=== PATIENT | male | born 1940 | race Caucasian/White ===

== ENCOUNTER 2016-07-26 12:46 | Inpatient (IN) | payer MEDICARE, MEDICAID ==
[~2016-07-26] VITALS: Ht 175.3 cm; Wt 76.3 kg
--- NOTE | ~2016-07-26 | HEMODYNAMI ---
PATIENT:TOMMIE EVANS MEDICAL RECORD: [id number] : 42 LOCATION:[facility] D.2309 ADMISSION DATE: 07/26/16 Generatedon:07/27/201615:20 Patient name: TOMMIE EVANS Patient #: [id number] : 1940 Date of study: 07/27/2016 Page: Of Hemodynamic Procedure Report Patient Data Patient Demographics Procedure consent was obtained First Name: TOMMIE Gender: Male Last Name: NATHAN : 1940 [facility] Initial: L Age: 76 year(s) Patient #: [id number] Race: SSN: [id number] Additional ID: [id number] Contact details [address]: [address] [place] [address] State: [place] City: [place] Zip code: [address] Past Medical History History of disease Date Diagnosis Comments CHF Allergies: No known allergies Admission Admission Data Admission Date: 07/26/2016 Admission Time: 14:40 Arrival Date: 07/27/2016 Arrival Time: 14:40 Admit Source: Emergency Insurance Payor: Medicare department Room #: D.2309 Weight (lbs.): 192 Weight (kg.): 87.09 Lab Results Lab Result Date: 07/27/2016 Lab Result Time: 0:00 Biochemistry Name Units Result Min Max BUN mg/dl 22 --(----)-* 7 18 Creatinine mg/dl 1.5 --(----)-* 0.6 1.3 CBC Name Units Result Min Max Hemoglobin g/dl 13.8 --(*---)-- 13.5 17.5 Procedure Procedure Types Cath Procedure Diagnostic Procedure [facility] w/Coronaries PCI Procedure Coronary Stent Initial Procedure Description Procedure Date Procedure Date: 07/27/2016 Procedure Start Time: 14:35 Procedure End Time: 14:55 Procedure Staff Name Function Norris Rosa MD Performing Physician Candace Whaley RT Scrub Reynaldo Paige RN Nurse Isabella Gunderson RT Monitor Indication Angina Procedure Data Cath Procedure Fluoroscopy Diagnostic fluoroscopy Total fluoroscopy Time: 4.3 time: 4.3 min min Diagnostic fluoroscopy Total fluoroscopy dose: dose: 1004 mGy 1004 mGy Entry Location Entry Primary Successful Side Size Upsize Upsize Entry Closure Succes sful Closure Location (Fr) 1 (Fr) 2 (Fr) Remarks Device Remarks Femoral Right 6 Fr 6 Fr 6 Fr artery Short Long Short Estimated blood loss: 5 ml Diagnostic catheters Device Type Used For End Catheter Placement Cordis 5Fr Pigtail LV Angiography Catheter (MP) Cordis 5Fr JL 4.0 Left Coronary Catheter (MP) Angiography Cordis 5Fr 3DRC Catheter Right Coronary (MP) Angiography Procedure Complications No complications Procedure Medications Medication Administration Route Dosage Oxygen Heparin Flush Bag added to field 3 bags (1000units/500ml NS) 0.9% NaCl I.V. 100 ml/hr Heparin Bolus I.V. 4000 units Dobutamine I.V. drip 5 mcg/kg/min (500mg/250ml D5W) Hemodynamics Rest HGB: 13.8 (g/dl) Heart Rate: 104 (bpm) Pressure Samples Time Site Value (mmHg) Purpose Heart Use Rate(bpm) 14:38 LV 21/15,16 Snapshot 75 Snapshots Pre Cath Intra NCS Post Cath Vital Signs Time Heart Resp SPO2 NIBP (mmHg) Rhythm Pain Sedation Rate (ipm) (%) Status Level (bpm) 14:27:15 93 18 100 94/78(83) NSR 0 (11) 5(A) , No pain 14:31:55 89 18 100 112/75(97) NSR 0 (11) 5(A) , No pain 14:35:53 112 18 100 124/87(109) NSR 0 (11) 5(A) , No pain 14:39:54 96 18 100 114/85(98) NSR 0 (11) 5(A) , No pain 14:43:52 90 18 100 112/92(100) NSR 0 (11) 5(A) , No pain 14:47:49 109 19 100 119/88(104) NSR 0 (11) 5(A) , No pain 14:51:47 95 18 100 119/99(105) NSR 0 (11) 5(A) , No pain 14:55:45 99 18 100 122/95(107) NSR 0 (11) 5(A) , No pain Medications Time Medication Route Dose Verified Delivered Reason Notes Effectiveness by by 14:44:09 Oxygen Per Vent 14:44:24 Heparin Flush added 3 bags Reynaldo Jacobs used for Bag to Royal Paige RN procedure (1000units/500ml field RN NS) 14:44:34 0.9% NaCl I.V. 100 ml/hr Reynaldo Jacobs Per Royal Paige RN physician RN 14:44:41 Heparin Bolus I.V. 4000 units Reynaldo Jacobs Per Royal Paige RN physician RN 14:47:57 Dobutamine I.V. 5 Reynaldo Jacobs Per (500mg/250ml drip mcg/kg/min Royal Paige RN physician D5W) cane burner Log Time Note 13:57:06 Admit Source: Emergency department 13:57:14 Time tracking: Call back 13:57:18 Plan of Care:Hemodynamics will remain stable., Cardiac rhythm will remain stable., Comfort level will be maintained., Respiratory function will remain adequate., Patient/ family verbilizes understanding of procedure., Procedure tolerated without complication., Recovers from procedure without complications.. 14:09:35 Reynadlo Paige RN sent for patient. Start room use. 14:16:30 Diagnostic Cath Status : Elective 14:16:36 Indication : Angina 14:16:57 Informed consent obtained and on chart 14:17:03 Arrival Date: 07/27/2016 2:40:00 PM 14:17:14 Insurance Payor : Medicare 14:26:13 Patient received from ICU to CCL 1 Alert and oriented. Tansferred to table in Supine position. 14:26:14 Warm blankets applied, and melida hugger turned on for patient comfort. 14:26:14 Correct patient and procedure confirmed by team. 14:26:15 ECG and BP/O2 sat monitors applied to patient. 14:26:15 Vital chart was started 14:26:16 Baseline sample Acquired. 14:26:26 Rhythm: 3rd degree heart block 14:26:28 Full Disclosure recording started 14:26:32 H&P Date Dictated: 07/27/2016 New H&P dictated by physician.. 14:26:36 Pre-procedure instructions explained to patient. 14:26:37 Pre-op teaching completed and patient verbalized understanding. 14:26:39 Family unavailable. 14:26:40 Patient NPO since Midnight. 14::44 Is the patient allergic to Iodine/contrast media? No. 14::45 Was the patient premedicated? No 14::48 Is patient on blood thinner?Yes 14::51 ACC The patient was administered the following blood thiners within the last 24 hours: ACCPlavix 14:27:58 Patient unable to answer questions due to intubation and sedation 14:28:03 Previous problem with sedation/anesthesia? Unknown ? 14:28:05 Snore? Unknown 14:28:06 Sleep apnea? Unknown 14:28:07 Deviated septum? Unknown 14:28:08 Opens mouth fully? Unknown 14:28:10 Sticks out tongue? Unknown 14:28:12 Airway obstruction? Unknown ? 14:28:15 Dentures? Unknown ? 14:28:19 Pre procedure: right dorsailis pedis pulse 1+ Palpable, but thready & weak; easily obliterated 14:28:21 Patient pain scale 0/10 ?. 14:28:27 IV patent on arrival in left forearm with 0.9% NaCl at [facility]. 14:29:49 Lab Result : BUN 22 mg/dl 14:29:49 Lab Result : Creatinine 1.5 mg/dl 14:29:49 Lab Result : Hemoglobin 13.8 g/dl 14:29:53 Lab results completed and on chart. 14:29:57 Right groin area was prepped with chlora-prep and draped in sterile fashion 14::58 Alarms reviewed by R. N. 14::58 Sharps counted by scrub and verified by R.N. 14:30:44 Physician arrived 14::44 --------ALL STOP TIME OUT------ 14:30:45 Final Timeout: patient, procedure, and site verified with staff and physician. All members of the team are in agreement. 14:30:46 Right groin site verified by team. 14:30:48 Physical assessment completed. ASA score P 4 - A patient with severe systemic disease that is a constant threat to life as per Norris Rosa MD. 14:30:52 Sedation plan: IV Moderate Sedation Versed, Fentanyl 14:31:15 Micropuncture VSI 4FR kit opened to sterile field. 14:31:43 Use device set Femoral Dx 14:31:44 Acist Syringe opened to sterile field. 14:31:45 Bag Decanter opened to sterile field. 14:31:45 Cardinal Cath Pack opened to sterile field. 14:31:46 St Del 260cm J .035 wire opened to sterile field. 14:31:47 Acist Hand Control opened to sterile field. 14:31:47 Acist Manifold opened to sterile field. 14:31:48 Cordis Infinity 5Fr Multipack catheter opened to sterile field. 14:31:49 Tegaderm 4 x 4 opened to sterile field. 14:31:58 Flores Whisper J 300cm 0.014 guide wire opened to sterile field. 14:32:17 Terumo 6Fr Fults Sheath opened to sterile field. 14:35:24 Procedure started. 14:35:28 Local anesthetic to right femoral artery with Lidocaine 2% by Norris Rosa MD.INITIAL ACCESS ONLY 14:35:39 A 6 Fr Short sheath was inserted into the Right Femoral artery 14:36:27 Zero performed for pressure channel P1 14:36:34 IV Extension Set opened to sterile field. 14:37:57 A Cordis 5Fr Pigtail Catheter (MP) was advanced over the wire and used for LV Angiography. 14:38:25 LV hemodynamics recorded. 14:38:26 LV gram done using LAMAS 14:38:30 Injector settings: Ml/sec: 5, Volume: 15, 14:38:50 EF : 10 % 14:38:59 Catheter removed. 14:39:06 A Cordis 5Fr JL 4.0 Catheter (MP) was advanced over the wire and used for Left Coronary Angiography. 14:39:25 LCA angiography performed. 14:39:30 Injector settings: Ml/sec: 3, Volume: 6, 14:40:13 Catheter removed. 14:40:17 A Cordis 5Fr 3DRC Catheter (MP) was advanced over the wire and used for Right Coronary Angiography. 14:41:16 RCA angiography performed. 14:41:20 Injector settings: Ml/sec: 3, Volume: 6, 14:41:41 Catheter removed. 14:41:56 Univision Launcher 6Fr AR 2.0 guide catheter opened to sterile field. 14:42:17 [employer] BasixCompak Inflation Kit opened to sterile field. 14:42:50 Proceeding to intervention. 14:42:59 6 Fr ar 2 guide catheter was inserted over the wire 14:43:57 Guide Catheter removed. unable to cannulate vessel. 14:44:01 Medtronic Launcher 6Fr 3DRC guide catheter opened to sterile field. 14:44:09 Oxygen Per Vent was given by ; ; 14:44:09 6 Fr 3drc guide catheter was inserted over the wire 14:44:24 Heparin Flush Bag (1000units/500ml NS) 3 bags added to field was given by Reynaldo Paige RN; used for procedure; 14:44:34 0.9% NaCl 100 ml/hr I.V. was given by Reynaldo Paige RN; Per physician; 14:44:41 Heparin Bolus 4000 units I.V. was given by Reynaldo Paige RN; Per physician; 14:45:31 Guide Catheter removed. unable to get back-up support 14:46:28 Arrow 6Fr 45cm Sheath opened to sterile field. 14:46:35 Medtronic Launcher 6Fr 3DRC guide catheter opened to sterile field. 14:46:44 Sheath upsized to a 6 Fr Long. 14:46:58 6 Fr 3drc guide catheter was inserted over the wire 14:47:25 whisper wire advanced. 14:47:57 Dobutamine (500mg/250ml D5W) 5 mcg/kg/min I.V. drip was given by Reynaldo Paige RN; Per physician; 14:48:28 Wire advanced across lesion. 14:49:33 Inflation Number: 1 A Medtronic Integrity 3.0 X 18 stent was prepped and advanced across the Dist RCA. The stent was deployed at 13 NORIS for 0:10 (min:sec). 14:49:40 Inflation number: 2 The stent balloon was then re-inflated across the Dist RCA to 19 NORIS for 0:10 (min:sec). 14:50:00 Inflation number: 3 The stent balloon was then re-inflated across the Dist RCA to 11 NORIS for 0:10 (min:sec). 14:50:35 Stent catheter was removed intact over wire. 14:50:38 Wire removed. 14:50:39 Guide catheter removed. 14:51:16 Sheath upsized to a 6 Fr Short. 14:51:59 Procedure ended.(Physican Out) 14:52:12 Fluoroscopy time 04.30 minutes. 14:52:42 Sheath sutured in for arterial access 14:53:02 Flurop Dose total: 1004 14:53:02 Fluoroscopy dose: 1004 mGy 14:53:17 2.0 Silk 685H opened to sterile field. 14:53:52 Sharps counted by scrub and verified by R.N. 14:54:01 Insertion/operative site no bleeding no hematoma. 14:54:10 Post right femoral artery:stable 14:54:11 Post Procedure Pulses reassessed and unchanged 14:54:14 Post procedure rhythm: unchanged. 14:54:17 Estimated blood loss: 5 ml 14:54:18 Post procedure instruction explained to patient.Patient verbalizes understanding. 14:54:19 Patient needs reinforcement of post procedure teaching. 14:54:32 Procedure type changed to Cath procedure, Diagnostic procedure, LHC, LHC w/Coronaries, PCI procedure, Coronary Stent Initial 14:54:33 Procedure and supply charges have been captured, reviewed, submitted and are correct. 14:54:36 Procedure Complication : No complications 14:55:20 Vital chart was stopped 14:55:21 See physician's report for complete and final results. 14:55:24 Report given to ICU. 14:55:26 Patient transfered to ICU with Stretcher. 14:55:28 Procedure ended. 14:55:28 Full Disclosure recording stopped 14:56:01 ACC-PCI Only Patient was given prescriptions, or instructed by Norris Rosa MD to start/continue the following medications upon discharge: Plavix 14:56:02 End room use (Document Last) 14:57:45 Patient Weight : 87.09 kg Intervention Summary Intervention Notes Time ActionType Lesion and Equipment Action# Pressure Duration Attributes Used 14:49:33 Place stent Dist RCA Medtronic 1 13 00:10 Integrity 3.0 X 18 stent 14:49:40 Reinflate Dist RCA Medtronic 2 19 00:10 stent Integrity balloon 3.0 X 18 stent 14:50:00 Reinflate Dist RCA Medtronic 3 11 00:10 stent Integrity balloon 3.0 X 18 stent Device Usage Item Name Manufacture Quantity Catalog Hospital Part Current Minima l Lot# / Number Charge Number Stock Stock Serial# Code Micropuncture VSI VASCULAR 1 [id number] 280517 031491 5 VSI 4FR kit SOLUTIONS Acist Syringe Acist 1 54943 768590 302103 797717 20 Medical Systems Inc Bag Decanter Microtek 1 2002S 136662 17475 034594 5 Medical Inc. Cardinal Cath Cardinal 1 [id number] 107807 98089 236394 [address] [facility] [address] Del [address] St Del 1 378833 782722 989937 091244 30 J .035 wire Acist Hand Acist 1 92570 931691 800487 117231 5 Control Medical Systems Inc Acist Acist 1 85292 384854 224241 136765 5 InterpretOmics Medical Systems Inc Cordis Cardinal 1 PS7115 225123 66080 872607 30 Infinity 5Fr Health Multipack catheter Tegaderm 4 x 3M 1 1626W 595772 890506 207629 5 4 Flores Flores 1 [id number] 412752 236642 164981 5 Whisper J Vascular 300cm 0.014 guide wire Terumo 6Fr Terumo 1 [id number] 949486 528027 881555 40 Fults Sheath IV Extension Hospira 1 95946-42 767026 24898 175634 5 Set Cordis 5Fr Cardinal 1 863384 5 Pigtail Health Catheter (MP) Cordis 5Fr JL Cardinal 1 380974 5 4.0 Catheter Health (MP) Cordis 5Fr Cardinal 1 364142 5 3DRC Catheter Health (MP) Medtronic Medtronic 1 [id number] 333759 81674 541822 1 Launcher 6Fr AR 2.0 guide catheter Merit Merit 1 [id number] 242090 035923 457021 [facility] Inflation [facility] Medtronic Medtronic 2 [id number] 584750 002455 810507 1 Launcher 6Fr 3DRC guide catheter Arrow 6Fr Teleflex 1 CL-09988 342081 601897 761976 5 45cm Sheath Medtronic Medtronic 1 [id number] 015582 571019 404726 7 [id number] Integrity 3.0 X 18 stent 2.0 Silk 685H Ethicon 1 685H 222439 198045 5 Signature Audit [place] Stage Time Signature Unsigned Intra-Procedure 07/27/2016 Isabella Gudnerson 3:20:48 PM RT(R) Signatures Monitor : Isabella Gunderson RT Signature : Date : Time : [address] [place] [address]
[~2016-07-26 12:46] MED LIST: BETAPACE 120 M120 MG PO; CORDARONE200 MG PO; FLORAJEN3 CAPS460 MG PO; LANOXIN250 MCG; LANOXIN250 MCG PO; LASIX20 MG PO; LEVAQUIN750 MG PO; LISINOPRIL10 MG PO; LOPRESSOR25 MG PO; MUCINEX600 MG PO; PRADAXA75 MG PO; ZESTRIL20 MG PO
[2016-07-26 13:23] LABS: BASOPHILS 0.1 % (0.0-2.0); EOSINOPHILS 1.1 % (0-7); HEMATOCRIT 41.9 % (42.0-54.0); HEMOGLOBIN 13.8 g/dL (13.5-17.5); IMMATURE GRANULOCYTES 0.1 % (0-5); LYMPHOCYTES 20.2 % (15-50); MCH 32.5 pg (26.0-34.0); MCHC 32.9 g/dL (31.0-37.0); MCV 98.6 fL (80.0-100.0); MEAN PLATELET VOLUME 12.2 fL (7.4-10.4); MONOCYTES 6.9 % (2-11); NEUTROPHILS 71.6 % (40-80); RBC 4.25 10x6/uL (4.20-6.10); RDW 12.4 % (11.5-14.5); WBC 8.5 10x3/uL (4.8-10.8)
[2016-07-26 13:25] LABS: PLATELET COUNT 217 10x3/uL (130-400)
[2016-07-26 13:48] LABS: ALBUMIN 3.9 g/dL (3.4-5.0); ANION GAP 11.5 mmol/L (8-16); BILIRUBIN - TOTAL 1.4 mg/dL (0.2-1.3); CALCIUM 9.2 mg/dL (8.5-10.1); CARBON DIOXIDE 26.3 mmol/L (21.0-32.0); CREATININE - SERUM 1.5 mg/dL (0.6-1.3); MAGNESIUM - SERUM 1.9 mg/dL (1.8-2.4); POTASSIUM - SERUM 3.8 mmol/L (3.5-5.1); PROTEIN - SERUM 7.5 g/dL (6.4-8.2); TROPONIN-I 0.032 ng/mL (0.000-0.060)
[2016-07-26 16:44] VITALS: BP 131/68; BMI 26.2; BMI 28.4
--- NOTE | 2016-07-26 16:47 | NUR ---
TRANSFER FROM ER BY W/C. DOLLYINTED TO ROOM. CALL LIGHT IN REACH. WILL CONT. PLAN OF CARE.
[2016-07-26 20:30] VITALS: BP 92/62
[2016-07-27] VITALS (40 sets, daily range): BP systolic 76–138; BP diastolic 50–98
--- NOTE | 2016-07-27 02:15 | NUR ---
PT RESTING WELL WITHOUT C/O DISTRESS NOTED. NO NEEDS VOICED. CALL LIGHT WITHIN REACH. WILL CONT TO MONITOR.
--- NOTE | 2016-07-27 09:23 | NUR ---
TELEMETRY SR. IV PATENT. CALL LIGHT IN REACH. WILL MONITOR NEEDS.
--- NOTE | 2016-07-27 13:27 | NUR ---
CODE BLE CALLED. DR. BERGER AT BS. SHOCKED 360J AND CAME BACK WITH PULSE AND SB.
--- NOTE | 2016-07-27 13:35 | NUR ---
INTUBATED BY DR. MOBLEY. AND SENT TO ICU.
--- NOTE | 2016-07-27 13:54 | NUR ---
ATTEMPTED TO NOTIFY FAMILY OF TRANSFER TO ICU. NO ANSWER NOTED. MESSAGE LEFT.
[2016-07-27 14:10] LABS: BASOPHILS 0.2 % (0.0-2.0); EOSINOPHILS 2.2 % (0-7); HEMATOCRIT 49.4 % (42.0-54.0); HEMOGLOBIN 16.1 g/dL (13.5-17.5); IMMATURE GRANULOCYTES 0.2 % (0-5); LYMPHOCYTES 36.1 % (15-50); MCH 31.9 pg (26.0-34.0); MCHC 32.6 g/dL (31.0-37.0); MCV 97.8 fL (80.0-100.0); MEAN PLATELET VOLUME 12.5 fL (7.4-10.4); MONOCYTES 8.5 % (2-11); NEUTROPHILS 52.8 % (40-80); PLATELET COUNT 230 10x3/uL (130-400); RBC 5.05 10x6/uL (4.20-6.10); RDW 12.5 % (11.5-14.5); WBC 10.2 10x3/uL (4.8-10.8)
[2016-07-27 14:27] LABS: ALBUMIN 4.1 g/dL (3.4-5.0); ANION GAP 18.1 mmol/L (8-16); BILIRUBIN - TOTAL 1.37 mg/dL (0.2-1.3); CALCIUM 9.7 mg/dL (8.5-10.1); CARBON DIOXIDE 25.8 mmol/L (21.0-32.0); CREATININE - SERUM 1.5 mg/dL (0.6-1.3); MAGNESIUM - SERUM 2.3 mg/dL (1.8-2.4); PHOSPHOROUS 5.2 mg/dL (2.5-4.9); POTASSIUM - SERUM 3.9 mmol/L (3.5-5.1); PROTEIN - SERUM 7.9 g/dL (6.4-8.2)
--- NOTE | 2016-07-27 18:07 | NUR ---
1400-RECIEVED AZBL-YEQY-ORLMDNUXMYE BY DR MOBLEY AND SACHI BLUE TEAM--NOTED UCAF ON KIHAUEQ-YAJR-150/[address] MOBLEY-CORDARONNRaquel 150MG IBOLUS STARTED-L 20 X2 IV ACCESSES OBTAINED IN L HAND -LAB DRAWN R HAND FOR STAT BMP/HEMOGRAM-PT INTUBATED AND PLACED ON VENT--BY RT-POWER MACHINE OPERATOR PRESENT AND SETUP-STARTED FOR TRANSPORT TO POWER MACHINE OPERATOR-PORTABLE VENT-PT MOVING ALL EXTREMITIES WITH ASAD 9-1-GIFSFNKF DIPRIVAN FOR ASAD 1-2 NIBP 102/70 ABG CHSIR-5268-AQ TRANSPORTED PER POWER MACHINE OPERATOR TEAM AND RT-JENNIFER CATH IN PLACE
--- NOTE | 2016-07-27 19:35 | NUR ---
REC'D TO CARE, TOOL DESIGN CHECKER PER FLOWSHEET. PT ON MECH VENT VIA OETT - SEE FLOWSHEET. SEDATED WITH DIPRIVAN GTT - WILL OPEN EYES AND JOSE. B/L SOFT WRIST RESTRAINTS ON PER MD ORDER. OGT TO LIWS WITH LIGHT BROWN DRAINAGE. HEART IRREG - CM CAF . R FEMORAL A-LINE - FLUSHED AND ZEROED WITH ADEQUATE WAVE FORM, NOTED NOT PERFUSING ALL BEATS. APICAL PULSE 55.. PEDAL PULSES DOPPLERABLE. R GROIN VENOUS LINE WITH NS AT 50ML/HR AND DOBUTAMINE AT 5 MCG/KG/MIN - DSG C/D/I. L WRIST AND HAND PIV X 2 - INFUSING DIPRIVAN, CORDARONE AND LEVOPHED GTTS - WILL TITRATE LEVOPHED PER MD ORDER. RODRIGUEZ CATH PATENT AND DRAINING LIGHT YELLOW, PINK-TINGED URINE. ALARMS ON. WILL CONT CLOSE MONITORING.
--- NOTE | 2016-07-27 20:09 | NUR ---
1540-RETURNED TO 2309 WITH OUTSIDE SALES CONSULTANT TEAM AND RT-PORT VENT PLACED-TO VENT BY RT-R FEM DALE TO MONITOR WITH GOOD WAVE FORM-R FEM VENOUS TO N/S AND DOBUTREX AT 5MCG/KG/MIN-L HAND DIPRIVAN TITRATED TO 25MCG-CURRENT ASAD 5-6-GOAL 7-9-JAXCCVYNP AT MG /MIN-LEVOPHED STARTED TO MAINTAIN SYS BP>100-RODRIGUEZ CATH ASHLEE URINE - 1630-RETURN CALL FROM INFORMED OF EVENTS AND OUT COME STRESSED SERIOUS ON VENT-WITH CONDITION STABILIZING-ENCOURAGED SAFE RETURN TO [facility]->100MILES DISTANCE- 174-DR NUNES IN UNIT-CURRENT STATUS REPORT AND COURSE OF EVENTS-FAMILY ARRIVAL PENDING 1809-SISTER ARRIVED -ASAD 4-PT MOVING ALL EXTREMITIES-TITRATING DIPRIVAN AND LEVOPHED FOR SYS BP SUPPORT AND GOAL OF 1-2 183- AT [facility]-EVENTS REVIEWED PT ASAD 1-2-PAUSED MADDISON TO REVIEW NUERO STATUS WITH 184-ASAD 1-1-BTHCGUPH RETURNED AND FAMILY IN WAITING AREA
[2016-07-27 20:54] LABS: APPEARANCE HAZY (CLEAR); BILIRUBIN NEGATIVE (NEGATIVE); COLOR YELLOW (YELLOW); GLUCOSE NEGATIVE (NEGATIVE); KETONE NEGATIVE (NEGATIVE); LEUKOCYTE ESTERASE NEGATIVE (NEGATIVE); NITRITE NEGATIVE (NEGATIVE); PROTEIN TRACE mg/dL (NEGATIVE); SPECIFIC GRAVITY 1.015 (1.005-1.020); UROBILINOGEN NORMAL (NORMAL)
[2016-07-27 20:55] LABS: BACTERIA MODERATE /hpf (NONE SEEN); EPITHELIAL CELLS 0-5 /hpf (0-5); HYALINE CAST OCC /lpf (NONE SEEN); RED CELLS - URINE 25-50 /hpf (0-5); WHITE CELLS - URINE 0-5 /hpf (0-5)
[2016-07-27 20:56] LABS: AMORPHOUS SEDIMENT <1+ /lpf (NONE SEEN); GRANULAR CAST OCC /lpf (NONE SEEN)
--- NOTE | 2016-07-27 21:26 | NUR ---
FAMILY AT BS, UPDATE GIVEN AND QUESTIONS ANSWERED. BELONGING INCLUDING CLOTHES AND WATCH SENT WITH . PASSWORD SET UP.
[2016-07-28] VITALS (96 sets, daily range): BP systolic 90–137; BP diastolic 48–89; Ht 175.3 cm; Wt 76.3 kg
--- NOTE | 2016-07-28 01:07 | NUR ---
SEDATION DECREASED FOR NEURO CHECK. WITHIN 10MIN PT OPENING EYES AND SQUEEZING HANDS TO COMMAND. RESUMED DIPRIVAN TO 30MCG/KG/MIN D/T PT PULLING AND REACHING FOR TUBES. VSS.
--- NOTE | 2016-07-28 01:12 | NUR ---
REPOSITIONED WITH PILLOWS, RESISTANT TO ORAL CARE, BUT DONE. ARMS ON PILLOWS. VSS.
--- NOTE | 2016-07-28 03:00 | NUR ---
REASSESSMENT PER FLOWSHEET. NO ACUTE CHANGES. WILL OPEN EYES AND FOLLOW COMMANDS, BACK TO REST EASILY, VSS. NO SIGN OF DISTRESS.
--- NOTE | 2016-07-28 05:10 | NUR ---
PT COUGHING AGAINST VENT AND PULLING AGAINST RESTRAINTS - SBP TO 150S. CALMED EASILY,, ORIENTED BY NURSE. WILL TITRATE DIPRIVAN AND LEVOPHED NEEDED.
[2016-07-28 05:38] LABS: BASOPHILS 0.1 % (0.0-2.0); EOSINOPHILS 0.3 % (0-7); HEMOGLOBIN 16.1 g/dL (13.5-17.5); IMMATURE GRANULOCYTES 0.2 % (0-5); LYMPHOCYTES 12.4 % (15-50); MCH 31.9 pg (26.0-34.0); MCHC 32.9 g/dL (31.0-37.0); MCV 97.2 fL (80.0-100.0); MEAN PLATELET VOLUME 12.6 fL (7.4-10.4); MONOCYTES 9.4 % (2-11); NEUTROPHILS 77.6 % (40-80); PLATELET COUNT 250 10x3/uL (130-400); RBC 5.04 10x6/uL (4.20-6.10); RDW 12.5 % (11.5-14.5)
[2016-07-28 05:42] LABS: WBC 14.7 10x3/uL (4.8-10.8)
[2016-07-28 06:11] LABS: ALBUMIN 3.6 g/dL (3.4-5.0); ANION GAP 15.7 mmol/L (8-16); BILIRUBIN - TOTAL 0.88 mg/dL (0.2-1.3); CALCIUM 8.7 mg/dL (8.5-10.1); CARBON DIOXIDE 27.7 mmol/L (21.0-32.0); CREATININE - SERUM 1.7 mg/dL (0.6-1.3); PHOSPHOROUS 4.5 mg/dL (2.5-4.9); POTASSIUM - SERUM 3.4 mmol/L (3.5-5.1); PROTEIN - SERUM 7.6 g/dL (6.4-8.2)
--- NOTE | 2016-07-28 06:22 | NUR ---
FAMILY AT BS, UPDATE GIVEN AND QUESTIONS ANSWERED.
--- NOTE | 2016-07-28 06:41 | NUR ---
K+ 3.4 - COVERAGE INITIATED PER ELECTROLYTE PROTOCOL
--- NOTE | 2016-07-28 07:00 | NUR ---
Received report and assumed care of patient. Pt currently intuabted and sedated with propofol. Pt on dobutamine, levophed and amiodarone gtts at this time. Arterial sheath remains in place from builder's labourer, as well as an arterial line to right groin. Left hand and left wrist PIVs in place and are patent. Patient currently in afib uncontrolled on CM. Robison cath and OGT in place. ETT size 8, 24 at the lip. Pt arouses to voice and light stimulation. Follows commands. See shift assessment flowsheet for all findings.
--- NOTE | 2016-07-28 07:49 | NUR ---
Bag 2 of 4 of potassium hung per electrolyte replacement protocol.
--- NOTE | 2016-07-28 08:45 | NUR ---
Potassium 3/4 hung per electrolyte protocol.
--- NOTE | 2016-07-28 10:13 | NUR ---
4/4 potassium infusing and lab redraw placed into system. Yamel Watters RN performed oral care and turned to left side.
--- NOTE | 2016-07-28 10:18 | NUR ---
NUTRITION MONITORING & EVAL TO START TUBE FEEDS PER MD VOICE ORDER. 1)PULMOCARE @ 10 CC/HR 2)INCREASE 10 CC/HR Q 8 HOURS TOLERATED TO GOAL RATE 45 CC/HR 3)50 CC H2O FLUSH Q 4 HOURS PER PUMP CURRENTLY RECEIVING DIPRIVAN @ 15 CC/HR RD FOLLOWING
--- NOTE | 2016-07-28 10:28 | NUR ---
in room to see patient. POC discussed. New orders received. Will continue to rest on vent for today.
--- NOTE | 2016-07-28 12:19 | NUR ---
Per attempted to cardovert patient x 2 with and another RN at bedside. Conversions were unsucessful. Pt remains in uncontrolled AFIB.
--- NOTE | 2016-07-28 13:30 | NUR ---
Patient remains in uncontrolled AFIB.
--- NOTE | 2016-07-28 14:39 | NUR ---
Daily dose of bumex administered per order.
--- NOTE | 2016-07-28 15:55 | NUR ---
Pts family here for 1500 visitation. Update given and questions and concerns addressed.
--- NOTE | 2016-07-28 17:15 | NUR ---
Robison emptied, IOS documented.
--- NOTE | 2016-07-28 18:24 | NUR ---
No visitors here at 1800 visitation. Pt remains on all gtts. Arouses to verbal stimuli.
--- NOTE | 2016-07-28 19:30 | NUR ---
REC'D TO CARE, SEWING DEPARTMENT SUPERVISOR PER FLOWSHEET. ON [facility] VENT VIA OETT - SEE FLOWSHEET. PT SEDATED WITH DIPRIVAN, WILL OPEN EYES AND FOLLOW SIMPLE COMMANDS. CM - UCAR. R FEMORAL A-LINE NOTED WITH GOOD WAVE FORM, NOTED BEATS NOT PERFUSING AT TIMES. PEDAL PULSES DOPPLERABLE. L PIV X 2 AND R GROIN VENOUS LINE - SEE FLOWSHEET. WILL TITRATE LEVOPHED PER MD ORDER. OGT TO LIWS - SCANT, BEIGE DRAINAGE NOTED. RODRIGUEZ CATH PATENT AND DRAINING VICTOR MANUEL URINE WITH SEDIMENT NOTED. ALARMS ON. B/L SOFT WRIST RESTRAINTS ON PER MD ORDER.
--- NOTE | 2016-07-28 21:10 | NUR ---
FAMILY AT BS, UPDATE GIVEN AND QUESTIONS ANSWERED.
--- NOTE | 2016-07-28 23:35 | NUR ---
COMPLETE BATH AND LINEN CHANGE DONE. RODRIGUEZ-CARE AND BACK CARE DONE. REPOSITIONED UP IN BED TO R SIDE. ROM DONE. CONT WRIST RESTRAINTS PER MD ORDER.
--- NOTE | 2016-07-28 23:49 | NUR ---
REASSESSMENT PER FLOWSHEET, NO ACUTE CHANGES. TITRATING LEVOPHED GTT PER MD ORDER.
[2016-07-29] VITALS (86 sets, daily range): BP systolic 84–158; BP diastolic 33–955
--- NOTE | 2016-07-29 02:00 | NUR ---
REPOSITIONED UP IN BED. ROM DONE. PT OPENS EYES BRIEFLY, NO SIGN OF DISTRESS. ARMS ELEVATED ON PILLOWS.
[2016-07-29 03:24] LABS: BASOPHILS 0.1 % (0.0-2.0); EOSINOPHILS 0.3 % (0-7); HEMATOCRIT 45.2 % (42.0-54.0); IMMATURE GRANULOCYTES 0.4 % (0-5); MCHC 33.2 g/dL (31.0-37.0); MCV 96.4 fL (80.0-100.0); MEAN PLATELET VOLUME 12.4 fL (7.4-10.4); MONOCYTES 8.5 % (2-11); NEUTROPHILS 76.7 % (40-80); PLATELET COUNT 217 10x3/uL (130-400); RBC 4.69 10x6/uL (4.20-6.10); RDW 12.9 % (11.5-14.5); WBC 15.1 10x3/uL (4.8-10.8)
--- NOTE | 2016-07-29 03:35 | NUR ---
PCXR DONE. REASSESSMENT PER FLOWSHEET. NO ACUTE CHANGES. VSS.
[2016-07-29 03:38] LABS: ALBUMIN 3.2 g/dL (3.4-5.0); ANION GAP 13.8 mmol/L (8-16); BILIRUBIN - TOTAL 1.02 mg/dL (0.2-1.3); CALCIUM 8.1 mg/dL (8.5-10.1); CARBON DIOXIDE 24.7 mmol/L (21.0-32.0); CREATININE - SERUM 1.7 mg/dL (0.6-1.3); MAGNESIUM - SERUM 1.9 mg/dL (1.8-2.4); POTASSIUM - SERUM 3.5 mmol/L (3.5-5.1)
--- NOTE | 2016-07-29 04:46 | NUR ---
K+ 3.5 - COVERAGE PER ELECTROLYTE PROTOCOL
--- NOTE | 2016-07-29 05:00 | NUR ---
BEGIN WEANING DIPRIVAN PER MD ORDER. VSS. LEVOPHED AT 9MGC/MIN.
--- NOTE | 2016-07-29 06:32 | NUR ---
FAMILY AT BS, UPDATE GIVEN AND QUESTIONS ANSWERED.
--- NOTE | 2016-07-29 07:00 | NUR ---
REC'D REPORT AND RESUMED CARE, ETT TO VENTILATION AND SECURED, VSS, VENT IN SIMV MODE, SEDATION IN USE, AROUSES TO VERBAL STIMULI, FOLLOWS COMMANDS, ASSESSMENT PER FLOWSHEET
--- NOTE | 2016-07-29 09:12 | NUR ---
CHANGED TO CPAP MODE ON VENT BY RT
--- NOTE | 2016-07-29 09:35 | NUR ---
DR CARNES AT BEDSIDE, COUNSELED WITH FAMILY, SEDATION DC'D FOR CPAP TRIAL, PATIENT AWAKE AND RESTLESS, FOLLOWS SOME COMMANDS
--- NOTE | 2016-07-29 10:10 | NUR ---
AM MEDS GIVEN, REPEAT POTASSIUM DRAWN AND SENT TO LAB
--- NOTE | 2016-07-29 11:00 | NUR ---
NO ACUTE CHANGE FORM PREVIOUS ASSESSMENT, VSS, CONTINUE ON LEVAPHED, CORDARONE, AND DOBUTAMINE,
--- NOTE | 2016-07-29 12:30 | NUR ---
FEMSTOP OFF PER ORDER, NO BLEEDING NOTED, CVL DRESSING DCHANGE TO LEFT GROIN,
--- NOTE | 2016-07-29 13:29 | NUR ---
PATIENT IS ON THE VENT AND SEDATED. THERE IS NO FAMILY HERE TO INTERVIEW. CM TO FOLLOW.
--- NOTE | 2016-07-29 13:45 | NUR ---
EXTUBATED WITHOUT DIFFICULTY, 3 L NC APPLIED, ORAL CARE AND SUCTION COMPLETED
--- NOTE | 2016-07-29 14:48 | NUR ---
Is the patient Alert and Oriented? Yes 0 * How many steps to enter\exit or inside your home? 2 0 * PCP PETROS FALCON APN 0 * Pharmacy [facility] IN [place], [place] 0 * Preadmission Environment Home with Family 0 * ADLs Independent 0 * Equipment None 0 * List name and contact numbers for known caregivers / representatives who currently or will assist patient after discharge: SPOUSE: DALJIT (H) [phone] (C) [phone] DAUGHTER PETROS [phone] 0 * Community resources currently utilized None 0 * Additional services required to return to the preadmission environment? No 0 * Can the patient safely return to the preadmission environment? Yes 0 * Has this patient been hospitalized within the prior 30 days at any hospital? No PATIENT IS AWAKE AND ALERT. HE STATES HE LIVES AT HOME WITH HIS , DALJIT. HE STATES SHE WILL BE ABLE TO DRIVE HIM HOME AT DISCHARGE. HIS PCP IS PETROS FALCON APN. PATIENT GETS HIS MEDS FROM [facility]. HE DENIES USE OF ANY EQUIPMENT. PATIENT DENIES EVER HAVING HOME HEALTH. THERE ARE 2 STEPS TO ENTER HIS HOME. NO DISCHARGE NEEDS AT THIS TIME.
--- NOTE | 2016-07-29 15:00 | NUR ---
RESTING WITH NO SIGNS OF DISTRESS, VSS, DENIE PAIN, ASSESSMENT COMPLETE PER FLOWSHEET, CALL LIGHT IN REACH, VOICES NO NEEDS AT THIS TIME
--- NOTE | 2016-07-29 17:00 | NUR ---
JENNIFER LANDRY'Chica PER REQUEST, SKINCARE AND LINEN CHANGE COMPLETED
--- NOTE | 2016-07-29 17:55 | NUR ---
INCONTINENT OF URINE, SKINCARE AND BUTT PASTE APPLIED, LINEN CHANGED
--- NOTE | 2016-07-29 18:10 | NUR ---
FAMILY AT BEDSIDE, STATUS UPDATED, VOICES NO NEEDS AT THIS TIME
--- NOTE | 2016-07-29 18:55 | NUR ---
INCONTINENT OF URINE, SKINCARE AND LINEN CHANGE COMPLETED
--- NOTE | 2016-07-29 19:25 | NUR ---
REC'D TO CARE, GERONTOLOGY AIDE PER FLOWSHEET. PT AWAKE AND ORIENTED, VSS. AT BS. CM - UCAF.. L HAND PIV WITH CORDARONE AND LEVOPHED GTTS, WILL CONT TO WEAN LEVOPHED TOLERATED. R GROIN CVL WITH DOBUTAMINE AND NS - SEE FLOWSHEET. POX 97% ON RA. PT WITH URINAL BETWEEN LEGS, REPORTS SOME INCONTINENCE AFTER RODRIGUEZ REMOVAL. ALARMS ON AND C/L IN REACH. GIVEN FRESH WATER AND DIET SPRITE.
--- NOTE | 2016-07-29 21:00 | NUR ---
PT UP TO RECLINER, GAIT STEADY. C/L IN REACH, FAMILY IN FOR VISITATION.
--- NOTE | 2016-07-29 23:26 | NUR ---
REASSESSMENT PER FLOWSHEET. NO ACUTE CHANGES. PT IN BED, REPORTS "CANT SLEEP". DENIES SOB OR PAIN. VSS. C/L IN REACH.
[2016-07-30] VITALS (33 sets, daily range): BP systolic 74–129; BP diastolic 50–99
--- NOTE | 2016-07-30 00:22 | NUR ---
PT RESTING WITH EYES CLOSED, VSS, NO SIGN OF DISTRESS.
--- NOTE | 2016-07-30 03:02 | NUR ---
REASSESSMENT PER FLOWSHEET. NO ACUTE CHANGES. PT AWAKENS EASILY, REPORTS FEELING "BETTER". VSS. C/L IN REACH. ALARMS ON.
[2016-07-30 05:04] LABS: BASOPHILS 0.1 % (0.0-2.0); EOSINOPHILS 1.4 % (0-7); HEMATOCRIT 41.1 % (42.0-54.0); HEMOGLOBIN 13.6 g/dL (13.5-17.5); IMMATURE GRANULOCYTES 0.3 % (0-5); LYMPHOCYTES 11.7 % (15-50); MCHC 33.1 g/dL (31.0-37.0); MCV 96.7 fL (80.0-100.0); MEAN PLATELET VOLUME 12.3 fL (7.4-10.4); MONOCYTES 6.9 % (2-11); NEUTROPHILS 79.6 % (40-80); RBC 4.25 10x6/uL (4.20-6.10); RDW 12.6 % (11.5-14.5); WBC 12.4 10x3/uL (4.8-10.8)
[2016-07-30 05:05] LABS: PLATELET COUNT 154 10x3/uL (130-400)
[2016-07-30 05:23] LABS: BILIRUBIN - TOTAL 1.67 mg/dL (0.2-1.3); CARBON DIOXIDE 28.3 mmol/L (21.0-32.0); CREATININE - SERUM 1.7 mg/dL (0.6-1.3); MAGNESIUM - SERUM 1.7 mg/dL (1.8-2.4); POTASSIUM - SERUM 3.3 mmol/L (3.5-5.1); PROTEIN - SERUM 6.7 g/dL (6.4-8.2)
--- NOTE | 2016-07-30 06:09 | NUR ---
KCL AND MAG RIDERS INITIATED PER ELECTROLYTE PROTOCOL. PT AWAKE, DENIES PAIN OR NEEDS.
--- NOTE | 2016-07-30 07:00 | NUR ---
REC'D REPORT AND RESUMED CARE, AAO, VSS, DENIES PAIN, ASSESSMENT COMPLETE PER FLOWSHEET, CALL LIGHT IN REACH, VOICES NO NEEDS AT THIS TIME
--- NOTE | 2016-07-30 08:05 | NUR ---
BREAKFAST TRAY TO BEDSIDE, ASSIST WITH SET UP, INDEPENDENT WITH EATING
--- NOTE | 2016-07-30 08:30 | NUR ---
EMESIS WITH FOOD PARTICALS, BREAKFAST TRAY FROM BEDSIDE, ORAL CARE COMPLETED
--- NOTE | 2016-07-30 09:13 | NUR ---
NUTRITION MONITORING & EVAL CHART REVIEWED. EXTUBATED. DIABETIC DIET STARTED. NURSING REPORTS VERY LITTLE INTAKE BREAKFAST. RD FOLLOWING
--- NOTE | 2016-07-30 09:40 | NUR ---
AM MEDS GIVEN WITH SIPS OF WHITE SODA, TOLERATED WITHOUT DIFFICULTY
--- NOTE | 2016-07-30 10:52 | NUR ---
OOB TO CHAIR WITH ASSIST, TOLERATED TRANSFER WITHOUT DIFFICULTY,
--- NOTE | 2016-07-30 11:00 | NUR ---
CONTINUES TO SIT UP IN CHAIR, VSS, DENIES PAIN, ASSESSMENT COMPLETE PER FLOWSHEET, WILL CONTINUE WITH POC
--- NOTE | 2016-07-30 11:12 | NUR ---
REC'D REPORT AND RESUMED CARE, AAO, ASSESSMENT COMPLETE PER FLOWSHEET, DENIES PAIN, CALL LIGHT IN REACH, VOICES NO NEEDS AT THIS TIME
--- NOTE | 2016-07-30 12:15 | NUR ---
TOLERATED CREAM OF CHICKEN SOUP FOR LUNCH, NO OTHER NEEDS AT THIS TIME
--- NOTE | 2016-07-30 13:25 | NUR ---
SBP 74, LEVAPHED INITIATED AT 3 MCG
--- NOTE | 2016-07-30 13:54 | NUR ---
SLEEPING WITH NO SIGNS OF DISTRESS, BP 114/70
--- NOTE | 2016-07-30 17:55 | NUR ---
PER DR BERGER AMNIODERONE GTT AND DOBUTAMINE GTT DC'D, PO AMNIODERONE 200 MG ORDERED, AT BEDSIDE, VSS, CALL LIGHT IN REACH, VOICES NO NEEDS AT THIS TIME
--- NOTE | 2016-07-30 19:00 | NUR ---
REPORT RECEIVED AND ASSESSMENT COMPLETED. SEE ASSESSMENT FOR FULL DETAILS. PT FAMILT IN ROOM. VSS ON 3 MCG OF LEVOPHED. WILL MONITOR
--- NOTE | 2016-07-30 21:00 | NUR ---
2100 MEDS GIVEN. NO CHANGES IN STATUS AT THIS TIME WILL CONTINUE TO MONITOR.
--- NOTE | 2016-07-30 23:00 | NUR ---
REASSESSMENT COMPLETED. SEE ASSESSMENT FOR FULL DETAILS. CHANGED PT CENTRAL LINE DRESSING. NO OTHER CHANGES TO REPORT AT THIS TIME. WILL MONITOR.
[2016-07-31] VITALS (31 sets, daily range): BP systolic 79–130; BP diastolic 42–93
--- NOTE | 2016-07-31 01:00 | NUR ---
LEVOPHED INCREASED TO 4 MCG. PT HAD 3 B/P IN A ROW WITH UPPER 80'S SYSTOLIC. WILL CONTINUE TO MONITOR.
--- NOTE | 2016-07-31 03:00 | NUR ---
REASSESSMENT COMPLETED. SEE ASSESSMENT FOR FULL DETAILS. NO CHANGES TO REPORT AT THIS TIME. LEVOPHED DECREASED DUE TO IMPROVING PRESSURE. WILL CONTINUE TO MONITOR AND TITRATE NECCESSARY.
[2016-07-31 04:45] LABS: BASOPHILS 0.1 % (0.0-2.0); EOSINOPHILS 4.6 % (0-7); HEMATOCRIT 43.2 % (42.0-54.0); HEMOGLOBIN 14.4 g/dL (13.5-17.5); IMMATURE GRANULOCYTES 0.3 % (0-5); LYMPHOCYTES 10.6 % (15-50); MCH 31.8 pg (26.0-34.0); MCHC 33.3 g/dL (31.0-37.0); MCV 95.4 fL (80.0-100.0); MEAN PLATELET VOLUME 12.7 fL (7.4-10.4); MONOCYTES 8.3 % (2-11); NEUTROPHILS 76.1 % (40-80); RBC 4.53 10x6/uL (4.20-6.10); RDW 12.3 % (11.5-14.5); WBC 14.4 10x3/uL (4.8-10.8)
[2016-07-31 04:46] LABS: PLATELET COUNT 209 10x3/uL (130-400)
[2016-07-31 05:10] LABS: ALBUMIN 3.3 g/dL (3.4-5.0); ANION GAP 11.9 mmol/L (8-16); BILIRUBIN - TOTAL 2.09 mg/dL (0.2-1.3); CALCIUM 8.4 mg/dL (8.5-10.1); CARBON DIOXIDE 28.2 mmol/L (21.0-32.0); CREATININE - SERUM 1.6 mg/dL (0.6-1.3); MAGNESIUM - SERUM 1.9 mg/dL (1.8-2.4); POTASSIUM - SERUM 3.1 mmol/L (3.5-5.1); PROTEIN - SERUM 7.4 g/dL (6.4-8.2)
--- NOTE | 2016-07-31 05:34 | NUR ---
LEVOPHED INCREASED BACK TO 4 MCG DUE TO PRESSURE DECREASE. WILL CONTINUE TO MONITOR.
--- NOTE | 2016-07-31 13:06 | NUR ---
1300-LUE PICC LINE PLACED BY VASCULAR NURSE.
--- NOTE | 2016-07-31 13:21 | NUR ---
RT GROIN BAKARI DCD BY YU FROM [employer] GENER[employer] ENGINEER[employer]. PPP, NO BLEEDING OR HEMATOMA NOTED.
--- NOTE | 2016-07-31 19:15 | NUR ---
REPORT RECIEVED, SHIFT ASSESSMENT COMPLETE, PT IS ALERT AND ORIENTED, ON RA WITH 97% O2 SAT. LUNGS CLEAR IN ALL LOBES, S1S2, CM-ST, PATENT LEFT UPPER ARM PICC S/L, ABODMEN IS SOFT AND ROUND WITH ACTIVE BS, URINAL AND BSC AT BEDSIDE, ALL PPP, VSS, CALL LIGHT IN REACH
--- NOTE | 2016-07-31 21:22 | NUR ---
AT BEDSIDE, UPDATE GIVEN
--- NOTE | 2016-07-31 23:22 | NUR ---
REASSESSMENT COMPLETE, NO CHANGES NOTED, PT RESTING AT THIS TIME, NO NEEDS NOTED, VSS, CALL LIGHT IN REACH
[2016-08-01] VITALS (10 sets, daily range): BP systolic 73–106; BP diastolic 52–76
--- NOTE | 2016-08-01 01:28 | NUR ---
NO NEW CHANGES AT THIS TIME. VSS. PT SLEEPING COMFORTABLY. DENIES NEEDS. WILL CONTNIUE TO MONITOR.
--- NOTE | 2016-08-01 03:15 | NUR ---
REASSESSMENT COMPLETE, NO CHANGES NOTED, PT RESTING AT THIS TIME, VSS, CALL LIGHT IN REACH
--- NOTE | 2016-08-01 05:12 | NUR ---
PT AWAKE AT THIS TIME, DENIES ANY NEEDS OR WANTS, VSS, CALL LIGHT IN REACH
[2016-08-01 07:25] LABS: BASOPHILS 0.2 % (0.0-2.0); EOSINOPHILS 5.6 % (0-7); HEMATOCRIT 42.5 % (42.0-54.0); HEMOGLOBIN 13.8 g/dL (13.5-17.5); IMMATURE GRANULOCYTES 0.3 % (0-5); LYMPHOCYTES 13.8 % (15-50); MCH 31.2 pg (26.0-34.0); MCHC 32.5 g/dL (31.0-37.0); MCV 96.2 fL (80.0-100.0); MEAN PLATELET VOLUME 12.4 fL (7.4-10.4); MONOCYTES 7.9 % (2-11); NEUTROPHILS 72.2 % (40-80); PLATELET COUNT 197 10x3/uL (130-400); RBC 4.42 10x6/uL (4.20-6.10); RDW 12.2 % (11.5-14.5)
[2016-08-01 07:26] LABS: WBC 9.9 10x3/uL (4.8-10.8)
[2016-08-01 07:48] LABS: ANION GAP 12.8 mmol/L (8-16); BILIRUBIN - TOTAL 1.75 mg/dL (0.2-1.3); CALCIUM 8.8 mg/dL (8.5-10.1); CARBON DIOXIDE 27.9 mmol/L (21.0-32.0); CREATININE - SERUM 1.5 mg/dL (0.6-1.3); MAGNESIUM - SERUM 1.9 mg/dL (1.8-2.4); POTASSIUM - SERUM 3.7 mmol/L (3.5-5.1); PROTEIN - SERUM 6.9 g/dL (6.4-8.2)
--- NOTE | 2016-08-01 09:26 | NUR ---
NUTRITION MONITORING & EVAL PT UP WALKING WITH NURSING. SPOUSE AT BEDSIDE REPORTS PT WITH GOOD INTAKE BREAKFAST. RD FOLLOWING
--- NOTE | 2016-08-01 10:50 | NUR ---
1000-TRANSFER OUT TO PCU ORDER REC'D FROM DR BERGER, DOMI PT AROUND [facility], PT ELYSSA MCKEON.
--- NOTE | 2016-08-01 11:11 | OP ---
PATIENT NAME: TOMMIE EVANS MEDICAL RECORD: [id number] :42 LOCATION:.[facility] D.2309 ADMISSION DATE:07/26/16 SURGEON: ROB BERGER MD DATE OF OPERATION: 07/28/2016 PROCEDURE: DC cardioversion. INDICATION: Atrial fibrillation. PROCEDURE IN DETAIL: IV conscious sedation was underway with the patient being intubated, sedated and already on Diprivan drip. Continuous heart rate, O2 saturation, blood pressure monitoring were all undertaken, all of which remains stable. He received 2 shocks at 300 and 360 joules. He briefly maintained sinus rhythm; however, quickly reverted back to atrial fibrillation. OVERALL IMPRESSION: Successful DC cardioversion; however, the patient reverted back to atrial fibrillation each time, but this time, no further cardioversions will be undertaken. TRANSINT:[id number] Voice Confirmation ID: [id number] DOCUMENT ID: [id number] ROB BERGER MD at 1111 CC: [id number] DICTATION DATE: 07/28/16 1124 LICENSED APPRAISER: 07/28/16 1244 ADM IN [address] [id number] [place] [address]
--- NOTE | 2016-08-01 11:11 | OP ---
PATIENT NAME: TOMMIE EVANS MEDICAL RECORD: [id number] :42 LOCATION:D[facility] D.2309 ADMISSION DATE:07/26/16 SURGEON: ROB BERGER MD DATE OF OPERATION: 07/27/2016 PROCEDURES: 1. PTCA, stent RCA. 2. Left heart catheterization. 3. Selective coronary angiography. 4. Left ventriculogram. INDICATION: Status post cardiac arrest, coronary artery disease, angina, and cardiomyopathy. PROCEDURE IN DETAIL: After informed consent was obtained and after detailed explanation of risks, benefits as well as alternative therapies, the patient elected to proceed with angiogram and angioplasty. The right femoral area was prepped and draped in normal sterile fashion. Right femoral artery was cannulated via modified Seldinger technique with placement of 6-Tristanian sheath. All catheters exchanged through this sheath. FINDINGS: Left ventriculogram was performed in the standard 30-degree LAMAS view, reveals severe global hypokinesis throughout all segments. Overall ejection fraction less than 20%. SELECTIVE CORONARY ANGIOGRAPHY: 1. Left main is with no significant angiographic disease. 2. Left anterior descending has moderate irregularities, but no flow-limiting stenosis. 3. The left circumflex shows moderate irregularities, but no flow-limiting stenosis. 4. The right coronary artery has an 80% to 90% stenosis in the mid distal vessel. PERCUTANEOUS TRANSLUMINAL CORONARY ANGIOPLASTY STENT OF THE RIGHT CORONARY ARTERY: The stent used was 3.0 x 18 mm Integrity taken to 21 atmospheres. Result was 0% residual stenosis. OVERALL IMPRESSION: Successful percutaneous transluminal coronary angioplasty stent of the right coronary artery going from 80% to 90% initial stenosis to 0% residual. TRANSINT:[id number] Voice Confirmation ID: [id number] DOCUMENT ID: [id number] ROB BERGER MD at 1111 CC: [id number] DICTATION DATE: 07/27/16 1458 LEAD CARPENTER: 07/27/16 1512 ADM IN [address] [address] [place] [address]
--- NOTE | 2016-08-01 11:11 | HP ---
PATIENT: TOMMIE CLARK MEDICAL RECORD: [id number] ACCOUNT: [id number] LOCATION:[facility] D.2309 : 42 ADMISSION DATE: 07/26/16 HISTORY AND PHYSICAL EXAMINATION ADMITTING DIAGNOSES: 1. Angina. 2. Coronary artery disease. 3. Previous percutaneous transluminal coronary angioplasty, stent. 4. Congestive heart failure, chronic systolic dysfunction. 5. Cardiomyopathy, ejection fraction 30%. 6. Hypertension. HISTORY OF PRESENT ILLNESS: Mr. Clark has been admitted for the third time in the past month with congestive heart failure symptomatology. He does have a cardiomyopathy. He as well has coronary artery disease. Last cardiac intervention was approximately 1 year ago. He has been having increasing shortness of breath. He is admitted for diuresis, discharge; however, keeps coming back, he as well, has been having chest pain and chest discomfort compatible with angina just like that of his previous angina. He has a history of atrial fibrillation, but his rate is controlled with metoprolol. He is on Pradaxa for this. PHYSICAL EXAMINATION: GENERAL APPEARANCE: Well-nourished, well-developed, appears stated age. Level of distress, comfortable. PSYCHIATRIC: Mental status, alert, normal affect. Orientation, oriented to time, place and person. EYES: Lids and conjunctiva, noninjected. No discharge, no pallor. ENT: Lips, teeth, gums, normal dentition. Oropharynx, no cyanosis, no pallor. NECK: Carotid arteries, bilateral normal upstroke, no bruits, no thrills. JUGULAR VEINS: No jugular venous pressure or distention. CERVICAL LYMPH NODES: Nontender, nonenlarged. THYROID: Not enlarged. Nontender. No nodules. LUNGS: Respiratory effort, unlabored. CHEST: Normal curvature. No thoracic deformity. No chest wall tenderness. Percussion, resonant. Auscultation, clear. No wheezes, no rales, no rhonchi. CARDIOVASCULAR: Precordial exam, nondisplaced. No heaves or pericardial thrills. Rate and rhythm, regular. Heart sounds, normal S1, normal S2. No S3, no gallop, no rub. Systolic murmur, not heard. Diastolic murmur, not heard. EXTREMITIES: No cyanosis, no edema. Peripheral pulses, full and equal in all extremities, except as noted. No bruits appreciated. ABDOMEN: Soft, nondistended. Normal aorta. No bruit. Nontender. No masses. Liver, nontender, no hepatomegaly. Spleen, nontender, no splenomegaly. MUSCULOSKELETAL: No joint tenderness. No joint swelling. No erythema. NEUROLOGICAL: Normal gait, normal strength, normal tone. SKIN: Warm and dry. REVIEW OF SYSTEMS: The patient reports easy bruising but reports no swollen glands. The patient reports no fever, no night sweats, no significant weight gain, no significant weight loss. No significant exercise tolerance. The patient reports no dry eyes, no irritation, no vision change. Patient reports no difficulty hearing and no ear pain. Patient reports no frequent nose bleeds or nose and sinus problems. Patient reports on arm pain on exertion. No shortness of breath while lying down. No history of heart murmur. Patient HISTORY AND PHYSICAL [id number] TOMMIE CLARK reports no cough, no wheezing or coughing up blood. Patient reports no abdominal pain, no vomiting. Normal appetite. No diarrhea and not vomiting blood. No nausea and no constipation. Patient reports no incontinence. No difficulty urinating. No hematuria. No increased frequency. Patient reports no muscle aches. No weakness, no arthralgias, no back pain. No swelling of the extremities. Patient reports no abnormal mole, no jaundice, no rashes. Reports no loss of consciousness. No weakness and no numbness. No seizures, dizziness, or headaches. The patient reports no depression, no sleep disturbance, feeling safe in a relationship and no alcohol abuse. Patient reports on fatigue. Reports no runny nose or sinus pressure. No itching, no hives, and no frequent sneezing. OVERALL IMPRESSION: Recurrent anginal symptomatology along with heart failure, most likely he has recurrent hemodynamically significant coronary artery disease. We will proceed with coronary angiography. Further care depends upon findings of the angiography. TRANSINT:[id number] Voice Confirmation ID: [id number] DOCUMENT ID: [id number] ROB BERGER MD at 1111 CC: [id number] DICTATION DATE: 07/27/16 1137 MOVIE STUNT PERFORMER: 07/27/16 1148 [place] [address]
--- NOTE | 2016-08-01 13:54 | NUR ---
DC ORDER'S TO DC HOME NOTED. APT MADE FOR 2 WEEKS 08/14/16.
[2016-08-01] MEDS ORDERED: PLAVIX75 MG PO (13:57)
[2016-08-01] MEDS ORDERED: CORDARONE200 MG PO (13:57)
[2016-08-01] MEDS ORDERED: BAYER CHEWABLE81 MG PO (14:19)
--- NOTE | 2016-09-12 08:46 | DS ---
PATIENT:TOMMIE CLARK :42 MEDICAL RECORD: [id number] DISCHARGE SUMMARY ADMISSION DATE: 07/26/16 DISCHARGE DATE: 08/01/16 DISCHARGE DIAGNOSES: 1. Angina. 2. Coronary artery disease. 3. Percutaneous transluminal coronary angioplasty stent right coronary artery this admission. HOSPITAL COURSE: Mr. Clark presents with unstable angina, found to have single vessel disease to the RCA, underwent successful PTCA stent of the RCA, was discharged home with the addition of aspirin and Plavix to his medical regimen. We will follow up with [facility] in 1 month. TRANSINT:[id number] Voice Confirmation ID: [id number] DOCUMENT ID: [id number] ROB BERGER MD at 0846 CC: [id number] DICTATION DATE: 08/29/16 1223 CALIBRATION ENGINEER: 08/29/16 2200 DIS IN 08/01/16 [address] [id number] [place] [id number]
== END 2016-08-01 15:17 | disposition home or self-care (01) | DRG 248 ==
LOC: D.ER 12:46 → D.ICU 14:40 → D.M2 14:40 → D.ICU 07-27 13:42
PROVIDERS: Family Medicine; Internal Medicine Pulmonary Disease; ADMIT Internal Medicine Interventional Cardiology
PROC: B211YZZ Fluoroscopy of Multiple Coronary Arteries using Other Contrast (ICD-10-PCS; 2016-07-27)
PROC: 5A1945Z Respiratory Ventilation, 24-96 Consecutive Hours (ICD-10-PCS; 2016-07-27)
PROC: 02703DZ Dilation of Coronary Artery, One Artery with Intraluminal Device, Percutaneous Approach (ICD-10-PCS; principal; 2016-07-27 14:30)
PROC: 4A023N7 Measurement of Cardiac Sampling and Pressure, Left Heart, Percutaneous Approach (ICD-10-PCS; 2016-07-27 14:30)
PROC: 5A2204Z Restoration of Cardiac Rhythm, Single (ICD-10-PCS; 2016-07-28)
DX: I25.119 Atherosclerotic heart disease of native coronary artery with unspecified angina pectoris (principal); J95.821 Acute postprocedural respiratory failure; I46.9 Cardiac arrest, cause unspecified; I50.23 Acute on chronic systolic (congestive) heart failure; I48.1 Persistent atrial fibrillation; I24.9 Acute ischemic heart disease, unspecified; I13.0 Hypertensive heart and chronic kidney disease with heart failure and stage 1 through stage 4 chronic kidney disease, or unspecified chronic kidney disease; E11.22 Type 2 diabetes mellitus with diabetic chronic kidney disease; N18.9 Chronic kidney disease, unspecified

== ENCOUNTER 2016-08-04 23:09 | Inpatient (IN) | payer MEDICARE, MEDICAID ==
[~2016-08-04] VITALS: Ht 175.3 cm; Wt 74.7 kg
[~2016-08-04 23:09] MED LIST changes: +BAYER CHEWABLE81 MG PO; +PLAVIX75 MG PO
[2016-08-05] LABS: BASOPHILS 0.2 % (0.0-2.0); EOSINOPHILS 4.7 % (0-7); HEMATOCRIT 36.4 % (42.0-54.0); HEMOGLOBIN 11.9 g/dL (13.5-17.5); IMMATURE GRANULOCYTES 0.3 % (0-5); LYMPHOCYTES 13.6 % (15-50); MCH 31.2 pg (26.0-34.0); MCHC 32.7 g/dL (31.0-37.0); MCV 95.5 fL (80.0-100.0); MEAN PLATELET VOLUME 11.1 fL (7.4-10.4); MONOCYTES 9.6 % (2-11); NEUTROPHILS 71.6 % (40-80); RBC 3.81 10x6/uL (4.20-6.10); RDW 12.2 % (11.5-14.5); WBC 9.8 10x3/uL (4.8-10.8)
[2016-08-05 00:07] LABS: PLATELET COUNT 245 10x3/uL (130-400)
[2016-08-05 00:17] LABS: ALBUMIN 3.2 g/dL (3.4-5.0); ALKALINE PHOSPHATASE 50 U/L (46-116); ALT (SGPT) 34 U/L (10-68); CALC OSMOLALITY 266 mosm/kg (275-300); CALCIUM 8.6 mg/dL (8.5-10.1); CARBON DIOXIDE 27.7 mmol/L (21.0-32.0); CHLORIDE - SERUM 98 mmol/L (98-107); CREATININE - SERUM 1.4 mg/dL (0.6-1.3); GLUCOSE 159 mg/dL (74-106); PROTEIN - SERUM 7.1 g/dL (6.4-8.2); SODIUM 132 mmol/L (136-145); UREA NITROGEN 11 mg/dL (7-18); eGFR NON AFRICAN AMERICAN 52 mL/min (90-120)
[2016-08-05 00:25] LABS: CREATINE KINASE 59 UL (21-232); PRO BNP 18971 pg/mL (0-450); TROPONIN-I < 0.017 ng/mL (0.000-0.060)
[2016-08-05 04:23] VITALS: BP 117/72; Ht 175.3 cm; Wt 74.7 kg
[2016-08-05 16:00] VITALS: BP 120/72
[2016-08-05 19:00] VITALS: BP 103/70
--- NOTE | 2016-08-05 19:03 | NUR ---
SITTING UP IN BED, AAOX3, SKIN WARM AND DRY, RESP UNLABORED, IV PATENT TO RIGHT AC, O2@2LNC, MOOD PLEASANT, AT BEDSIDE, NO DISTRESS NOTED
[2016-08-06] VITALS: BP 92/64
[2016-08-06 04:00] VITALS: BP 107/56
--- NOTE | 2016-08-06 06:07 | NUR ---
RESTING QUIETLY IN BED, NO DISTRESS NOTED
[2016-08-06 06:52] LABS: BASOPHILS 0.2 % (0.0-2.0); EOSINOPHILS 3.7 % (0-7); IMMATURE GRANULOCYTES 0.6 % (0-5); LYMPHOCYTES 15.2 % (15-50); MCH 31.7 pg (26.0-34.0); MCHC 32.8 g/dL (31.0-37.0); MCV 96.7 fL (80.0-100.0); MEAN PLATELET VOLUME 11.4 fL (7.4-10.4); MONOCYTES 9.1 % (2-11); NEUTROPHILS 71.2 % (40-80); PLATELET COUNT 290 10x3/uL (130-400); RBC 4.57 10x6/uL (4.20-6.10); RDW 12.5 % (11.5-14.5); WBC 8.6 10x3/uL (4.8-10.8)
[2016-08-06 06:58] LABS: HEMATOCRIT 44.2 % (42.0-54.0); HEMOGLOBIN 14.5 g/dL (13.5-17.5)
[2016-08-06 07:00] LABS: ANION GAP 12.5 mmol/L (8-16); CARBON DIOXIDE 30.2 mmol/L (21.0-32.0); POTASSIUM - SERUM 3.7 mmol/L (3.5-5.1)
[2016-08-06 07:02] LABS: CREATININE - SERUM 1.8 mg/dL (0.6-1.3)
[2016-08-06 08:02] VITALS: BP 86/49
--- NOTE | 2016-08-06 09:43 | NUR ---
TELEMETRY CAF. IV PATENT. AT BS. WILL MONITOR NEEDS.
[2016-08-06] MEDS ORDERED: AUGMENTIN 500-11 TA1 PO (10:42)
[2016-08-06 11:42] VITALS: BP 84/62
--- NOTE | 2016-08-06 11:46 | NUR ---
IV AND TELEMETRY DCD. DC PLANS GIVEN. UNDERSTANDING VOICED. ESCORTED TO CAR BY W/C.
--- NOTE | 2016-08-06 12:03 | NUR ---
Patient Name: TOMMIE EVANS Admission Status: ER Accout number: [id number] Admission Date: 08-05-2016 : 1940 Admission Diagnosis: Attending: OMAR Current LOS: 1 Anticipated DC Date: 08-06-2016 Planned Disposition: Home Primary Insurance: [facility] LATE ENTRY: Discharge Planning Comments: * Is the patient Alert and Oriented? Yes 0 * How many steps to enter\exit or inside your home? 2 0 * PCP [facility] * Pharmacy [facility] OR [facility] IN [place] * Preadmission Environment Home with Family 0 * ADLs Independent 0 * Equipment None 0 * Other Equipment [facility] - MEDICAL EQUIPMENT PROVIDER 0 * List name and contact numbers for known caregivers / representatives who currently or will assist patient after discharge: DALJIT EVANS, SPOUSE, 0 * Community resources currently utilized None 0 * Please name any agencies selected above. NONE 0 * Additional services required to return to the preadmission environment? No 0 * Can the patient safely return to the preadmission environment? Yes 0 * Has this patient been hospitalized within the prior 30 days at any hospital? Yes 0 CM MET WITH PT AND SPOUSE IN ROOM TO DISCUSS DISCHARGE PLANNING AND NEEDS. PT REPORTS LIVING AT HOME INDEPENDENTLY WITH SPOUSE. PT HAS NO MEDICAL EQUIPMENT AND NO OUTSIDE SERVICES ASSISTING IN THE HOME. PT REPORTS SOMETIMES HE USES HIS WIFES HOME OXYGEN IF NEEDED. CM DISCUSSED AVAILABILITY OF HOME HEALTH, REHAB SERVICES AND MEDICAL EQUIPMENT. PT DENIES DISCHARGE NEEDS, REPORTS HIS SPOUSE IS HERE TO DRIVE HIM HOME FOR DISCHARGE TODAY. CM OFFERED HOME HEALTH TO CALL PT AFTER DISCHARGE TO CHECK ON HIM AND SEE IF PT WAS DOING OK OR NEEDED HOME SERVICES. PT DECLINED REPORTING HAVING HIS AT HOME AND CHILDREN CLOSEBY IF ANY ASSISTANCE IS NEEDED. Brine Tank Operator: Ran Rider
--- NOTE | 2016-08-08 16:40 | DS ---
PATIENT:TOMMIE CLARK :42 MEDICAL RECORD: [id number] DISCHARGE SUMMARY ADMISSION DATE: 08/05/16 DISCHARGE DATE: 08/06/16 DATE OF DISCHARGE: 08/06/2016 DIAGNOSES: 1. Congestive heart failure, chronic systolic dysfunction. 2. Fluid overload secondary to dietary indiscretion. 3. Hypertension. 4. Coronary artery disease. 5. History of recent ventricular tachycardia arrest. HOSPITAL COURSE: Mr. Clark presents with fluid overload, congestive heart failure symptomatology after eating a large portion of spaghetti that was heavily salted. He immediately diuresed, was put on Bumex and dobutamine. His heart failure symptomatology cleared. He was discharged home with no change in the medications. Follow up with [facility] as previously scheduled. TRANSINT:[id number] Voice Confirmation ID: [id number] DOCUMENT ID: [id number] ROB BERGER MD at 1640 CC: [id number] DICTATION DATE: 08/06/16 1033 COMPLAINT SPECIALIST: 08/06/16 1107 DIS IN 08/06/16 [address] [place] [address]
== END 2016-08-06 11:46 | disposition home or self-care (01) | DRG 293 ==
LOC: D.ER 23:09 → D.M2 08-05 12:50
PROVIDERS: Emergency Medicine; ADMIT Internal Medicine Interventional Cardiology
DX: I11.0 Hypertensive heart disease with heart failure (principal); I50.23 Acute on chronic systolic (congestive) heart failure; I25.10 Atherosclerotic heart disease of native coronary artery without angina pectoris; I48.91 Unspecified atrial fibrillation; E11.9 Type 2 diabetes mellitus without complications; I42.9 Cardiomyopathy, unspecified; Z95.5 Presence of coronary angioplasty implant and graft

== ENCOUNTER 2017-07-23 06:46 | Outpatient (CLI) | payer MEDICARE, MEDICAID ==
[~2017-07-23] VITALS: Ht 177.8 cm; Wt 86.4 kg
--- NOTE | ~2017-07-23 | HEMODYNAMI ---
PATIENT:TOMMIE EVANS MEDICAL RECORD: [id number] : 42 LOCATION:D.CAT ADMISSION DATE: 07/23/17 Generatedon:07/23/201715:27 Patient name: TOMMIE EVANS Patient #: [id number] : 1940 Date of study: 07/23/2017 Page: Of Hemodynamic Procedure Report Patient Data Patient Demographics Procedure consent was obtained First Name: TOMMIE Gender: Male Last Name: NATHAN : 1940 [facility] Initial: L Age: 77 year(s) Patient #: [id number] Race: SSN: [id number] Additional ID: [id number] Contact details [address]: [address] [place] [address] State: [place] City: [place] Zip code: [address] Past Medical History History of disease Date Diagnosis Comments CHF Allergies: No known allergies Admission Admission Data Admission Date: 07/23/2017 Admission Time: 6:46 Procedure Procedure Types Cath Procedure Diagnostic Procedure LHC Coronaries only Miscellaneous Procedures Moderate Sedation up to 15 minutes Procedure Description Procedure Date Procedure Date: 07/23/2017 Procedure Start Time: 15:13 Procedure End Time: 15:25 Procedure Staff Name Function Jass Goldsmith RT Monitor Candace Whaley RT Scrub Jan Javier RN Nurse Papo Perera MD Performing Physician Procedure Data Cath Procedure Fluoroscopy Diagnostic fluoroscopy Total fluoroscopy Time: 4.9 time: 4.9 min min Diagnostic fluoroscopy Total fluoroscopy dose: 501 dose: 501 mGy mGy Contrast Material Contrast Material Type Amount (ml) Isovue 300 34 Entry Location Entry Primary Successful Side Size Upsize Upsize Entry Closure Succes sful Closure Location (Fr) 1 (Fr) 2 (Fr) Remarks Device Remarks Femoral Right 6 Fr Exoseal artery Short Estimated blood loss: 10 ml Diagnostic catheters Device Type Used For End Catheter Placement DIAGNOSTIC JL 5 5Fr Procedure catheter ([id number]) MULTIPACK 3DRC 5Fr Procedure catheter DIAGNOSTIC AR MOD 5Fr Procedure Catheter ([id number]) MULTIPACK Pigtail 5 Fr Procedure catheter Procedure Complications No complications Procedure Medications Medication Administration Route Dosage 0.9% NaCl I.V. 100 ml/hr Oxygen NC 2 l/min Heparin Flush Bag added to field 2 bags (1000units/500ml NS) Lidocaine 2% added to field 20 Versed I.V. 1 mg Fentanyl I.V. 50 mcg Hemodynamics Rest Heart Rate: 102 (bpm) Snapshots Pre Cath Intra NCS Post Cath Vital Signs Time Heart Resp SPO2 etCO2 NIBP Rhythm Pain Sedation Rate (ipm) (%) (mmHg) (mmHg) Status Level (bpm) 15:03:43 115 19 96 16.6 131/89(99) NSR 0 (11) 10(A) , No pain 15:08:20 82 17 96 22.6 108/85(98) NSR 0 (11) 10(A) , No pain 15:13:25 91 16 94 0 104/70(83) NSR 0 (11) 10(A) , No pain 15:17:55 100 9 95 12.8 101/73(92) NSR 0 (11) 10(A) , No pain 15:22:30 99 13 98 21.9 108/44(77) NSR 0 (11) 10(A) , No pain Medications Time Medication Route Dose Verified Delivered Reason Notes Effe ctiveness by by 15:04:00 0.9% NaCl I.V. 100 Jna Jan Per ml/hr Concepcion Javier physician RN RN 15:04:11 Oxygen NC 2 Jan Jan Per l/min Concepcion Javier physician RN RN 15:04:24 Heparin Flush added 2 Jan Jan used for Bag to bags Lorigan Lorlorraine procedure (1000units/500ml field RN RN NS) 15:04:35 Lidocaine 2% added 20ml Jan Jan for local to vial Lorigan Lorigan anesthetic field RN RN 15:06:37 Versed I.V. 1 mg Jan Jan for Lorigan Lorigan sedation RN RN 15:06:47 Fentanyl I.V. 50 Jan Jan for mcg Lorigan Lorlorraine sedation RN blow molding machine tender Log Time Note 14:37:45 Time tracking: Regular hours 14:37:48 Plan of Care:Hemodynamics will remain stable., Cardiac rhythm will remain stable., Comfort level will be maintained., Respiratory function will remain adequate., Patient/ family verbilizes understanding of procedure., Procedure tolerated without complication., Recovers from procedure without complications.. 14:39:29 Candace Whaley RT(R) sent for patient. Start room use. 14:51:20 Patient received from Pre/Post Procedure Room to CCL 1 Alert and oriented. Tansferred to table in Supine position. 14:51:21 Warm blankets applied, and melida hugger turned on for patient comfort. 14:51:22 Correct patient and procedure confirmed by team. 14:51:23 Signed procedure consent form obtained from patient. 14:51:24 ECG and BP/O2 sat monitors applied to patient. 15:01:38 Vital chart was started 15:01:40 Baseline sample Acquired. 15:01:50 Rhythm: sinus rhythm 15:01:52 Full Disclosure recording started 15:02:08 H&P Date Dictated: 07/15/2017 Within 30 days and on chart., H&P Addendum completed by physician on day of procedure. (MUST COMPLETE FOR ALL OUTPATIENTS). 15:02:21 Pre-procedure instructions explained to patient. 15:02:21 Pre-op teaching completed and patient verbalized understanding. 15:02:24 Family in patients room. 15:02:25 Patient NPO since Midnight. 15:02:26 Is the patient allergic to Iodine/contrast media? No. 15:02:31 Is patient on blood thinner?No 15:02:35 Patient diabetic? Yes. 15:02:39 If diabetic: On Metformin? Unknown 15:02:41 Previous problem with sedation/anesthesia? No ? 15:02:43 Snore? Yes 15:02:51 Sleep apnea? No 15:02:53 Deviated septum? No 15:02:53 Opens mouth fully? Yes 15:02:55 Sticks out tongue? Yes 15:02:57 Airway obstruction? No ? 15:04:00 0.9% NaCl 100 ml/hr I.V. was administered by Jan Javier RN; Per physician; 15:04:11 Oxygen 2 l/min NC was administered by Jan Javier RN; Per physician; 15:04:24 Heparin Flush Bag (1000units/500ml NS) 2 bags added to field was administered by Jan Javier RN; used for procedure; 15:04:35 Lidocaine 2% 20ml vial added to field was administered by Jan Javier RN; for local anesthetic; 15:05:47 Dentures? No ? 15:05:50 Pre procedure: right dorsailis pedis pulse 1+ Palpable, but thready & weak; easily obliterated 15:05:51 Patient pain scale 0/10 ?. 15:05:58 IV patent on arrival in left forearm with 0.9% NaCl at O. 15:06:00 Lab results completed and on chart. 15:06:03 Right groin area was prepped with chlora-prep and draped in sterile fashion 15:06:04 Alarms reviewed by R. N. 15:06:05 Sharps counted by scrub and verified by R.N. 15:06:07 --------ALL STOP TIME OUT------ 15:06:08 Final Timeout: patient, procedure, and site verified with staff and physician. All members of the team are in agreement. 15:06:11 Right groin site verified by team. 15:06:15 Physical assessment completed. ASA score P 2 - A patient with mild systemic disease as per Phillip Guy MD. 15:06:18 Sedation plan: IV Moderate Sedation Medication:Versed, Fentanyl 15:06:37 Versed 1 mg I.V. was administered by Jan Javier RN; for sedation; 15:06:47 Fentanyl 50 mcg I.V. was administered by Jan Javier RN; for sedation; 15:08:28 Use device set Femoral Dx 15:08:43 Tegaderm 4 x 4 (1626W) opened to sterile field. 15:08:44 ACIST Manifold (18764) opened to sterile field. 15:08:45 ACIST Hand Control (00194) opened to sterile field. 15:08:47 ACIST Syringe (55756) opened to sterile field. 15:08:47 Bag Decanter (2001S) opened to sterile field. 15:08:47 Medline Cath Pack ([id number]) opened to sterile field. 15:08:50 DIAGNOSTIC WIRE .035 260cm J wire (158215) opened to sterile field. 15:08:52 DIAGNOSTIC Multipack 5Fr catheter set ([id number]) opened to sterile field. 15:08:52 PERCUTANEOUS ENTRY 19GA needle opened to sterile field. 15:08:54 SHEATH 6FR [place] (DFQ223) opened to sterile field. 15:12:48 Zero performed for pressure channel P1 15:12:51 Zero performed for pressure channel P1 15:12:54 Zero performed for pressure channel P1 15:12:56 Zero performed for pressure channel P1 15:12:59 Zero performed for pressure channel P1 15:13:08 Procedure started. 15:13:27 Local anesthetic to right femoral artery with Lidocaine 2% by Phillip Guy MD.INITIAL ACCESS ONLY 15:14:00 A 6 Fr Short sheath was inserted into the Right Femoral artery 15:14:05 A DIAGNOSTIC JL 5 5Fr catheter ([id number]) was advanced over the wire and used for Procedure. 15:14:26 LCA angiography performed. 15:15:00 Catheter removed. 15:15:23 A MULTIPACK 3DRC 5Fr catheter was advanced over the wire and used for Procedure. 15:17:26 Catheter removed. 15:17:49 A DIAGNOSTIC AR MOD 5Fr Catheter ([id number]) was advanced over the wire and used for Procedure. 15:18:15 RCA angiography performed. 15:18:34 Catheter removed. 15:19:24 A MULTIPACK Pigtail 5 Fr catheter was advanced over the wire and used for Procedure. 15:22:15 Unable to cross aortic valve. 15:22:16 Catheter removed. 15:22:25 EXOSEAL 6Fr (EX600) opened to sterile field. 15:23:12 Sheath removed intact; hemostasis achieved with Exoseal to the Right Femoral artery. 15:23:15 Procedure ended.(Physican Out) 15:23:53 Fluoroscopy time 04.90 minutes. 15::56 Fluoroscopy dose: 501 mGy 15:23:56 Flurop Dose total: 501 15:24:01 Contrast amount:Isovue 300 34ml. 15:24:03 Sharps counted by scrub and verified by R.N. 15:24:05 Insertion/operative site no bleeding no hematoma. 15:24:07 Post-op/insertion site Right Femoral artery dressed using a 4 x 4 and Tegaderm. 15:24:09 Post Procedure Pulses reassessed and unchanged 15:24:12 Post-procedure physical assessment completed. ASA score P 2 - A patient with mild systemic disease as per Papo Perera MD. 15:24:18 Post procedure rhythm: unchanged. 15:24:21 Estimated blood loss: 10 ml 15:24:27 Post procedure instruction explained to patient.Patient verbalizes understanding. 15:24:28 Patient needs reinforcement of post procedure teaching. 15:24:49 Procedure type changed to Cath procedure, Diagnostic procedure, LHC, Coronaries only, Miscellaneous Procedures, Moderate Sedation up to 15 minutes 15:24:52 Procedure and supply charges have been captured, reviewed, submitted and are correct. 15:25:31 Procedure Complication : No complications 15:25:34 Vital chart was stopped 15:25:34 See physician's report for complete and final results. 15:25:37 Report given to Pre/Post Procedure Room. 15:25:40 Patient transfered to Pre/Post Procedure Room with Stretcher. 15:25:43 Procedure ended. 15:25:43 Full Disclosure recording stopped 15:25:51 End room use (Document Last) Device Usage Item Name Manufacture Quantity Catalog Hospital Part Current Minimal Lot# / Number Charge Number Stock Stock Serial# Code Tegaderm 4 x 3M 1 1626W [id number] 597581 056443 5 4 (1626W) ACIST Acist 1 10627 616894 001253 942386 5 Manifold Medical (05877) Systems Inc ACIST Hand Acist 1 16233 053495 342864 673977 5 Control Medical (53014) Systems Inc ACIST Acist 1 14734 620448 899537 624850 20 Syringe Medical (45093) Systems Inc Bag Decanter Microtek 1 2002S 609880 65564 282733 5 (2002S) Medical Inc. Medline Cath Cardinal 1 [id number] 743991 75503 165217 5 Pack Health ([id number]) DIAGNOSTIC St Del 1 005749 801359 509753 674617 30 WIRE .035 260cm J wire (512702) DIAGNOSTIC Cardinal 1 WI8799 111453 15790 472189 30 Multipack Health 5Fr catheter set (JF7525) PERCUTANEOUS Cook Medical 1 F86706 931682 871749 5 ENTRY 19GA needle SHEATH 6FR Terumo 1 GMW254 823235 205520 749890 40 Trinidad (MJQ511) DIAGNOSTIC Cardinal 1 [id number] 204702 864779 431494 5 JL 5 5Fr Health catheter (995992Q) MULTIPACK Cardinal 1 806957 5 3DRC 5Fr Health catheter DIAGNOSTIC Cardinal 1 [id number] 768168 687869 903614 15 AR MOD 5Fr Health Catheter (133242M) MULTIPACK Cardinal 1 189580 5 Pigtail 5 Fr Health catheter EXOSEAL 6Fr Cardinal 1 EX600 451045 287322 562113 10 (EX600) Health Signature Audit [place] Stage Time Signature Unsigned Intra-Procedure 07/23/2017 Jass Goldsmith 3:27:03 PM RT(R) Signatures Monitor : Jass Goldsmith RT Signature : Date : Time : [address] [place] [address]
--- NOTE | ~2017-07-23 | OP ---
PATIENT NAME: TOMMIE EVANS MEDICAL RECORD: [id number] :42 LOCATION:D.CAT ADMISSION DATE: SURGEON: KALIA BOWER MD DATE OF OPERATION: 07/23/2017 PROCEDURE: Left heart catheterization, selective coronary angiography, right femoral artery approach. CATHETERS: A 5-Luxembourgish sheath, 5/4 left and right Mat. The procedure was well tolerated. The patient returned to the [facility]. Sheath removed. ExoSeal device placed. FINDINGS: Left ventriculography not performed. CORONARY ANATOMY: LEFT MAIN: Left main is free of disease. LAD: Free of disease in the diagonal system. CIRCUMFLEX: Free of disease in the marginal system. RIGHT CORONARY ARTERY: Area of previous stenting is widely patent. No evidence of progression of [place] disease. IMPRESSION: Suspect symptomatology may be coming from atrial fibrillation, previous cardiomyopathy. We will add carvedilol from both rate control and inotropic support as well as add Aldactone. TRANSINT:[id number] Voice Confirmation ID: [id number] DOCUMENT ID: [id number] KALIA BOWER MD at 1210 CC: [id number] DICTATION DATE: 07/23/17 1529 POND TENDER: 07/23/17 1607 DEP CLI 07/23/17 [id number] [place] [address]
[~2017-07-23 06:46] MED LIST changes: +AUGMENTIN 500-11 TA1 PO
[2017-07-23] MEDS ORDERED: PRINIVIL20 MG PO (07:15)
[2017-07-23] MEDS ORDERED: PRADAXA75 MG PO (07:15)
[2017-07-23 07:22] VITALS: BP 125/89; Ht 177.8 cm; Wt 86.4 kg
[2017-07-23 07:35] LABS: BASOPHILS 0.1 % (0-2); EOSINOPHILS 2.4 % (0-7); HEMOGLOBIN 15.5 g/dL (13.5-17.5); IMMATURE GRANULOCYTES 0.4 % (0-5); LYMPHOCYTES 20.3 % (15-50); MCH 32.8 pg (26.0-34.0); MCHC 34.4 g/dL (31.0-37.0); MCV 95.3 fL (80.0-100.0); MEAN PLATELET VOLUME 11.2 fL (7.4-10.4); MONOCYTES 11.4 % (2-11); NEUTROPHILS 65.4 % (40-80); RBC 4.72 10x6/uL (4.20-6.10); RDW 13.3 % (11.5-14.5); WBC 8.3 10x3/uL (4.8-10.8)
[2017-07-23 07:40] LABS: PLATELET COUNT 198 10x3/uL (130-400)
[2017-07-23 07:41] LABS: ANION GAP 15.8 mmol/L (8-16); CALCIUM 9.2 mg/dL (8.5-10.1); CARBON DIOXIDE 21.3 mmol/L (21.0-32.0); CREATININE - SERUM 1.7 mg/dL (0.6-1.3); POTASSIUM - SERUM 4.1 mmol/L (3.5-5.1)
[2017-07-23] MEDS ORDERED: COREG 3.1253.125 MG PO (16:31)
[2017-07-23] MEDS ORDERED: ALDACTONE25 MG PO (16:31)
== END 2017-07-23 17:48 | disposition home or self-care (01) ==
LOC: D.CATH 06:46
PROVIDERS: Internal Medicine Cardiovascular Disease
DX: I25.10 Atherosclerotic heart disease of native coronary artery without angina pectoris (principal); R06.02 Shortness of breath; I10 Essential (primary) hypertension; Z01.812 Encounter for preprocedural laboratory examination

== ENCOUNTER → 2018-10-01 12:29 | Outpatient (CLI) | payer MEDICARE, MEDICAID ==
[2017-07-23 07:22] VITALS: BMI 27.3
[~2018-10-01 12:29] MED LIST changes: +ALDACTONE25 MG PO; +COREG 3.1253.125 MG PO; +PRINIVIL20 MG PO
== END | disposition home or self-care (01) ==
LOC: D.HCCARDIO 12:29
PROVIDERS: ATTEND Internal Medicine Cardiovascular Disease
DX: I25.10 Atherosclerotic heart disease of native coronary artery without angina pectoris (principal)

== ENCOUNTER 2018-10-09 12:59 | Inpatient (IN) | payer MEDICARE, MEDICAID ==
[2018-10-09] VITALS (43 sets, daily range): BP systolic 64–124; BP diastolic 27–97; BMI 23.0
[~2018-10-09] VITALS: Ht 180.3 cm; Wt 75.0 kg
--- NOTE | 2018-10-09 13:58 | NUR ---
PATIENT RECEIVED VIA AMBULANCE STRETCHER, TRANSFER FROM [place] ADMITTED TO DR. HANSEN AND DR. BRITT. PATIENT TRANSFERED TO HOSPITAL BED. IV INFUSING 22 GA TO RIGHT FA WITH LEVOPHED AT 5 MCG/MIN AND NS AT 30 CC/HR. BP 99/70, HR 133 IRREGULAR, A-FIB, BBS CLEAR, DIMINISHED IN BASES. RR - 18. RODRIGUEZ CATH IN PLACE WITH VICTOR MANUEL URINE OUTPUT. HEAD TO TOE ASSESSMENT COMPLETED. DR. HANSEN AND DR. BRITT/[facility].
--- NOTE | 2018-10-09 14:54 | NUR ---
DR. HANSEN AT ROOM UPDATED AND EXAMINES PATIENT.
--- NOTE | 2018-10-09 15:18 | NUR ---
SPOKE TO DR. XIAO, ADVISED OF PATIENT AND UPDATED ON CONDITION, ADVISED TO GIVE 150 MG AMIODARONE IV BOLUS AND START ON AMIODARONE GTT AT 1 MG/HR FOR 6 HRS THEN TO DECREASE TO 0.5 MG/HR.
--- NOTE | 2018-10-09 15:30 | NUR ---
IV 20 GA STARTED TO LEFT FA X 1 ATTEMPT, POSITIVE BLOOD RETURN WITH LABS DRAWN (BLOOD CULTURE #2), FLUSHES EASILY. AMIODARONE GTT INFUSING WITHOUT DIFFICULTY.
[2018-10-09 15:39] LABS: BASOPHILS 0.2 % (0-2); EOSINOPHILS 2.2 % (0-7); HEMATOCRIT 33.5 % (42.0-54.0); HEMOGLOBIN 11.5 g/dL (13.5-17.5); IMMATURE GRANULOCYTES 1.1 % (0-5); LYMPHOCYTES 10.5 % (15-50); MCH 32.1 pg (26.0-34.0); MCHC 34.3 g/dL (31.0-37.0); MCV 93.6 fL (80.0-100.0); MEAN PLATELET VOLUME 9.9 fL (7.4-10.4); MONOCYTES 6.2 % (2-11); NEUTROPHILS 79.8 % (40-80); PLATELET COUNT 220 10x3/uL (130-400); RBC 3.58 10x6/uL (4.20-6.10); RDW 14.4 % (11.5-14.5); WBC 8.1 10x3/uL (4.8-10.8)
[2018-10-09 16:11] LABS: ALBUMIN 2.7 g/dL (3.4-5.0); ANION GAP 12.5 mmol/L (8-16); BILIRUBIN - TOTAL 0.85 mg/dL (0.2-1.3); CALCIUM 8.1 mg/dL (8.5-10.1); CARBON DIOXIDE 24.3 mmol/L (21.0-32.0); CREATININE - SERUM 1.4 mg/dL (0.6-1.3); MAGNESIUM - SERUM 1.4 mg/dL (1.8-2.4); PHOSPHOROUS 2.6 mg/dL (2.5-4.9); POTASSIUM - SERUM 4.8 mmol/L (3.5-5.1); PROTEIN - SERUM 6.5 g/dL (6.4-8.2)
--- NOTE | 2018-10-09 16:12 | NUR ---
DECREASED LEVOPHED GTT TO 2.5 MCG/MIN 4.7 CC/HR IN ATTEMPT TO WEAN OFF PER DR. XIAO.
--- NOTE | 2018-10-09 16:37 | NUR ---
PATIENTS BP 116/77, LEVOPHED GTT STOPPED. WILL MONITOR BP.
--- NOTE | 2018-10-09 17:05 | NUR ---
BP 79/68, LEVOPHED GTT RESTARTED AT 5 MCG/MIN (9.4 CC/HR).
--- NOTE | 2018-10-09 17:38 | NUR ---
PATIENT ATE APPROXIMATELY 80% OF HIS DINNER, STATES DOES NOT HAVE MUCH OF AN APPETITE.
--- NOTE | 2018-10-09 18:18 | NUR ---
LEVOPHED GTT INCREASED TO 7.5 MCG/MIN (14.1 CC/HR).
--- NOTE | 2018-10-09 19:00 | NUR ---
INITIAL ASSESSMENT COMPLETE PT ALERT AND ORIENTED ON CM ALARMS ON AN AUDIBLE PT IN UNCONTROLLED AFIB ON AMIODARONE GTT AT 1 MG/MIN TO BE TURNED DOWN TO 0.5 AT 2130 HYPOTENSIVE ON LEVOPHED DRIP SEE FLOWSHEETS. RESP EVEN NONLABORED ON NC O2 AT 2LPM. BREATH SOUNDS CLEAR.
[2018-10-09 19:33] LABS: APPEARANCE HAZY (CLEAR); BACTERIA MODERATE /hpf (NONE SEEN); BILIRUBIN NEGATIVE (NEGATIVE); COLOR DK YELLOW (YELLOW); GLUCOSE NEGATIVE (NEGATIVE); KETONE NEGATIVE (NEGATIVE); NITRITE NEGATIVE (NEGATIVE); PROTEIN 1+ mg/dL (NEGATIVE); RED CELLS - URINE >50 /hpf (0-5); UROBILINOGEN NORMAL (NORMAL); WHITE CELLS - URINE 0-5 /hpf (0-5)
--- NOTE | 2018-10-09 23:00 | NUR ---
REASSESSMENT MADE SEE FLOWSHEETS. STILL UNCONTROLLED A FIB AND HYPOTENSIVE WITH AMIO GTT AND LEVO GTT
[2018-10-10] VITALS (90 sets, daily range): BP systolic 71–135; BP diastolic 30–98
--- NOTE | 2018-10-10 | NUR ---
PT RESTING QUIETLY DENIES DISCOMFORT TRYING TO DECREASE LEVOPHED SLOWLY. PT STILL HYPOTENSIVE SEE IV FLOWSHEETS AT 6.5 MCG WITH SBP AT TIMES STILL DROPPING TO 80'S
--- NOTE | 2018-10-10 03:00 | NUR ---
REASSESSMENT MADE PT SLEEPING AROUSES EASILY DENIES PAIN OR DISCOMFORT. REMAINS HYPOTENSIVE LEVOPHED NOW AT 6 MCG UNABLE TO DECREASE ANY SIGNIFICANT AMOUNT
[2018-10-10 03:40] LABS: BASOPHILS 0.2 % (0-2); HEMATOCRIT 32.8 % (42.0-54.0); HEMOGLOBIN 11.3 g/dL (13.5-17.5); IMMATURE GRANULOCYTES 1.5 % (0-5); LYMPHOCYTES 12.9 % (15-50); MCH 31.8 pg (26.0-34.0); MCHC 34.5 g/dL (31.0-37.0); MCV 92.4 fL (80.0-100.0); MEAN PLATELET VOLUME 9.9 fL (7.4-10.4); MONOCYTES 6.1 % (2-11); NEUTROPHILS 77.3 % (40-80); PLATELET COUNT 207 10x3/uL (130-400); RBC 3.55 10x6/uL (4.20-6.10); RDW 14.4 % (11.5-14.5); WBC 8.5 10x3/uL (4.8-10.8)
[2018-10-10 03:50] LABS: ALBUMIN 2.6 g/dL (3.4-5.0); ANION GAP 15.1 mmol/L (8-16); BILIRUBIN - TOTAL 0.66 mg/dL (0.2-1.3); CALCIUM 8.6 mg/dL (8.5-10.1); CARBON DIOXIDE 21.5 mmol/L (21.0-32.0); CREATININE - SERUM 1.4 mg/dL (0.6-1.3); POTASSIUM - SERUM 4.6 mmol/L (3.5-5.1); PROTEIN - SERUM 6.9 g/dL (6.4-8.2)
--- NOTE | 2018-10-10 05:45 | NUR ---
PT REQUESTING BATH AND LINEN CHANGE HE WOKE UP WITH SWEATY SHEETS. CHECK OF TEMP OK 98.9 ORAL. HE WAS ABLE TO WASH SELF INDEPENDENTLY COMPLETE LINEN CHANGE
--- NOTE | 2018-10-10 07:00 | NUR ---
SHIFT ASSESSMENT COMPLETED, PT CARE ASSUMED, MONITORS ON AND WORKING, VITALS STABLE, SEE FLOW SHEET FOR FURTHER DETIALS, WILL CONTINUE TO OBSERVE.
--- NOTE | 2018-10-10 09:00 | NUR ---
PT AWAKE AND ALERT, CALL LIGHT WITHIN REACH, PT SITTING UP EATING BREAKFAST, WILL CONTINUE TO OBSERVE.
--- NOTE | 2018-10-10 11:00 | NUR ---
NO CHANGES, SEE FLOW SHEET FOR FURTHER DETIALS, WILL CONTINUE TO OBSERVE.
--- NOTE | 2018-10-10 13:00 | NUR ---
FAMILY AT BEDSIDE, UPDATE PROVIDED, MONITORS ON AND WORKING, VITALS STABLE, NO SIGNS/SYMPTOMS OF PAIN OR DISCOMFORT NOTED AT THIS TIME, WILL CONTINUE TO OBSERVE.
[2018-10-10 14:57] LABS: T4 THYROXIN - FREE 1.25 ng/dL (0.76-1.46); THYROID STIMULATING HORMONE 1.54 uIU/mL (0.36-3.74)
--- NOTE | 2018-10-10 15:00 | NUR ---
NO CHANGES, SEE FLOW SHEET FOR FURTHER DETIALS, WILL CONTINUE TO OBSERVE.
--- NOTE | 2018-10-10 17:00 | NUR ---
PT SITTING UP EATING DINNER, FAMILY AT BEDSIDE, UPDATE PROVIDED, NO SIGNS/SYMPTOMS OF PAIN OR DISCOMFORT NOTED AT THIS TIME, WILL CONTINUE TO OBERVE.
--- NOTE | 2018-10-10 19:00 | NUR ---
INITIAL ASSESSMENT COMPLETE. PT AWAKE ALERT AND ORIENTED. CM ON READING UNCONTROLLED A FIB STILL ON AMIODARONE GTT AND CONTINUES TO BE HYPOTENSIVE WITH LEVOPHED DRIP DECREASED TO 2 MCG BUT PER DAY SHIFT REPORT ANY ATTEMPTS TO DECREASE WERE UNSUCESSFUL WITH SBP DROPPING AGAIN TO 80'S. RESP EVEN AND NONLABORED O2 PER NC AT 2LPM WITH O2 SAT 98%. PT STATES HE IS JUST TIRED OF BEING IN BED AND NOT USED TO LAYING AROUND SO MUCH. ABD SOFT NONTENDER. RODRIGUEZ DRAINING DARK YELLOW URINE. PT C/O DISCOMFORT FROM BEING IN BED ASKED IF HE COULD HAVE ANYTHING FOR MUSCLE ACHE/PAIN TOLD HIM I WOULD TRY TO GET SOMETHING
--- NOTE | 2018-10-10 21:45 | NUR ---
DR ORTIZ ON UNIT SEEING OTHER PATIENTS INFORMED OF PT REQUEST FOR SOMETHING FOR HIP DISCOMFORT HE PLACED PRN ORDER
--- NOTE | 2018-10-10 22:00 | NUR ---
TYLENOL #3 GIVEN FOR BACK AND HIP PAIN PER PRN ORDER FROM DIANA
--- NOTE | 2018-10-10 23:00 | NUR ---
REASSESMENT MADE. HE STATES PAIN IS GONE THE MEDICINE HELPED. HEART RATE TRENDING DOWN STLL AFIB. WILL CONTINUE TO WEAN LEVOPHED GTT
[2018-10-11] VITALS (78 sets, daily range): BP systolic 51–109; BP diastolic 30–86; Ht 180.3 cm; Wt 75.0 kg
--- NOTE | 2018-10-11 02:13 | CN ---
PATIENT NAME:TOMMIE EVANS MEDICAL RECORD: [id number] : 42 LOCATION:DARIND.2302 ADMIT DATE: 10/09/18 ACCOUNT: [id number] CONSULTING PHYSICIAN: KALIA BOWER MD REFERRING PHYSICIAN: JOSE GUADALUPE HANSEN MD DATE OF CONSULTATION: 10/10/2018 HISTORY OF PRESENT ILLNESS: A 78-year-old gentleman with a history of coronary artery disease, status post intervention, has a history of cardiomyopathy as well. This is an excess of his ischemic burden. He is admitted with atrial fibrillation with RVR. Thought to have pneumonitis initially on antibiotics at [place]. He is referred here for higher level of care. PAST MEDICAL HISTORY: Includes: 1. History of hypertension. 2. Cardiomyopathy. 3. Coronary artery disease as described above. 4. Atrial fibrillation. ALLERGIES: None known. MEDICATIONS: Typically include: 1. Pradaxa 75 mg p.o. b.i.d. 2. Amiodarone 200 mg p.o. b.i.d. 3. Carvedilol 3.125 b.i.d. 4. Lisinopril 20 every day. 5. Aldactone 25 every day. SOCIAL HISTORY: Lives in [place]. He has been under more stress lately with his falling and breaking the hip and has been the primary caregiver. He is able to take care of ADLs, although generalized ability, high in activity in the last 4-6 weeks. REVIEW OF SYSTEMS: The patient reports easy bruising but reports no swollen glands. The patient reports no fever, no night sweats, no significant weight gain, no significant weight loss. No significant exercise tolerance. The patient reports no dry eyes, no irritation, no vision change. Patient reports no difficulty hearing and no ear pain. Patient reports no frequent nose bleeds or nose and sinus problems. Patient reports on arm pain on exertion. No shortness of breath while lying down. No history of heart murmur. Patient reports no cough, no wheezing or coughing up blood. Patient reports no abdominal pain, no vomiting. Normal appetite. No diarrhea and not vomiting blood. No nausea and no constipation. Patient reports no incontinence. No difficulty urinating. No hematuria. No increased frequency. Patient reports no muscle aches. No weakness, no arthralgias, no back pain. No swelling of the extremities. Patient reports no abnormal mole, no jaundice, no rashes. Reports no loss of consciousness. No weakness and no numbness. No seizures, dizziness, or headaches. The patient reports no depression, no sleep disturbance, feeling safe in a relationship and no alcohol abuse. Patient reports on fatigue. Reports no runny nose or sinus pressure. No itching, no hives, and no frequent sneezing. PHYSICAL EXAMINATION: GENERAL: Pleasant gentleman in no acute distress. HEENT: Normocephalic, atraumatic. CONSULT REPORT [id number] TOMMIE EVANS NECK: No bruits noted. HEART: Irregular, rate is about 100, S3 gallop is noted. LUNGS: Fair air excursion. ABDOMEN: Soft, nontender. EXTREMITIES: Pulses 2+ with no edema. DIAGNOSTIC DATA: ECG shows atrial fibrillation with RVR. IMPRESSION: Cardiomyopathy exacerbation. At this point in time, we will attempt to control rates medically. Continue oral anticoagulant. In addition, we will add Entresto for myopathic process. TRANSINT:[id number] Voice Confirmation ID: [id number] DOCUMENT ID: [id number] KALIA BOWER MD at 0213 CC: [id number] DICTATION DATE: 10/10/18 1235 PROFESSOR OF FOOD BIOCHEMISTRY: 10/10/[address] [facility] [address] [id number]
--- NOTE | 2018-10-11 03:00 | NUR ---
REASSESSMENT MADE PTS HEART RATE NOW STAYING CONTROLLED A FIB RATE ANYWHERE FROM 90-LOW 100'S BUT STILL AFIB
--- NOTE | 2018-10-11 06:43 | NUR ---
LAB HAD LEFT TUBES FOR BLOOD DRAW IF PT HAD [facility] LINE CALLED TO LET THEM KNOW HE DOES NOT HAVE LINE WILL NEED TO BE DRAWN. WAS INFORMED THEY WOULD BE HERE TO DRAW SHORTLY
--- NOTE | 2018-10-11 07:00 | NUR ---
SHIFT ASSESSMENT COMPLETED,PT CARE ASSUMED, MONITORS ON AND WORKING, VITALS STABLE, PT AWAKE AND ALERT, NO SIGNS/SYMPTOMS OF PAIN OR DISCOMFORT NOTED. CALL LIGHT WITHIN REACH, WILL CONTINUE TO OBSERVE.
--- NOTE | 2018-10-11 09:00 | NUR ---
PT TURNED AND REPOSITIONED FOR COMFORT, MONITORS ON AND WORKING, VITALS STABLE, FAMILY AT BEDSIDE, UPDATE PROVIDED, WILL CONTINUE TO OBSERVE.
[2018-10-11 09:09] LABS: BASOPHILS 0.1 % (0-2); EOSINOPHILS 2.5 % (0-7); HEMOGLOBIN 11.4 g/dL (13.5-17.5); IMMATURE GRANULOCYTES 0.8 % (0-5); LYMPHOCYTES 10.3 % (15-50); MCH 31.8 pg (26.0-34.0); MCHC 34.5 g/dL (31.0-37.0); MCV 92.2 fL (80.0-100.0); MEAN PLATELET VOLUME 10.6 fL (7.4-10.4); MONOCYTES 3.9 % (2-11); NEUTROPHILS 82.4 % (40-80); PLATELET COUNT 251 10x3/uL (130-400); RBC 3.58 10x6/uL (4.20-6.10); RDW 14.7 % (11.5-14.5); WBC 7.2 10x3/uL (4.8-10.8)
[2018-10-11 09:25] LABS: ALBUMIN 2.6 g/dL (3.4-5.0); ANION GAP 15.3 mmol/L (8-16); BILIRUBIN - TOTAL 0.71 mg/dL (0.2-1.3); CALCIUM 8.5 mg/dL (8.5-10.1); CARBON DIOXIDE 22.9 mmol/L (21.0-32.0); CREATININE - SERUM 1.4 mg/dL (0.6-1.3); POTASSIUM - SERUM 4.2 mmol/L (3.5-5.1); PROTEIN - SERUM 7.1 g/dL (6.4-8.2)
--- NOTE | 2018-10-11 11:00 | NUR ---
YUE HYLTON, SEE FLOW SHEET FOR FURTHER DETAILS. CALL LIGHT WITHIN REACH, WILL CONTINUE TO OBSERVE.
--- NOTE | 2018-10-11 13:00 | NUR ---
PT SITTING UP EATING LUNCH, LEVOPHED WEANED OFF, MAP STAYING ABOVE 60, PT AWAKE AND ALERT, DENIES ANY WEAKNESS OR DIZZYNESS, JENNIFER LANDRY'D, MONITORS ON AND WORKING, CALL LIGHT WITHIN REACH, WILL CONTINUE TO OBSERVE.
--- NOTE | 2018-10-11 15:00 | NUR ---
FAMILY AT BEDSIDE, UPDATE PROVIDED, NO SIGNS/SYMPTOMS OF PAIN OR DISCOMFORT NOTED AT THIS TIME. CALL LIGHT WTIHIN SWATI, WILL CONTINUE TO OBSERVE.
--- NOTE | 2018-10-11 17:00 | NUR ---
PT SITTING UP IN BED, AWAKE AND ALERT, CALL LIGHT WITHIN REACH, WILL CONTINUE TO OBSERVE.
--- NOTE | 2018-10-11 17:24 | MORECARE ---
CASE MANAGEMENT DISCHARGE SUMMARY PATIENT: TOMMIE EVANS UNIT: [id number] ADM DATE: 10/09/18 AGE: 78 : 41 SEX: M ROOM/BED: D.2302 AUTHOR: ROSEANNA GLASS PHYSICIAN: REFERRING PHYSICIAN: JOSE GUADALUPE HANSEN MD DATE OF SERVICE: 10/11/18 Discharge Plan Patient Name: TOMMIE EVANS [facility] [facility] 1940 Planned Disposition: Home Anticipated Discharge Date: Discharge Date: Expected LOS: Initial Reviewer: [email or web address] Initial Review Date: 10/11/2018 Generated: 10/11/18 6:24 pm Patient Name: TOMMIE EVANS Page [phone] at 1724 All edits/amendments must be made on the electronic document DICTATION DATE: 10/11/181722 NUTRITION REPRESENTATIVE: DANYEL 10/11/181722 RPT#: [id number] DC DATE: STATUS: ADM IN [facility] [address] [place] [address] END OF REPORT
--- NOTE | 2018-10-11 17:33 | MORECARE ---
CASE MANAGEMENT DISCHARGE SUMMARY PATIENT: TOMMIE CLARK UNIT: [id number] ADM DATE: 10/09/18 AGE: 78 : 41 SEX: M ROOM/BED: D.2302 AUTHOR: MARIA LUISADOC PHYSICIAN: REFERRING PHYSICIAN: JOSE GUADALUPE HANSEN MD DATE OF SERVICE: 10/11/18 Discharge Plan Patient Name: TOMMIE CLARK Facility: [facility]:[place] : 1940 Planned Disposition: Home Anticipated Discharge Date: Discharge Date: Expected LOS: Initial Reviewer: [email or web address] Initial Review Date: 10/11/2018 Generated: 10/11/18 6:33 pm Comments DCP- Discharge Planning Updated by [email or web address]: Yola Sandy on 10/11/18 4:[address] Patient Name: TOMMIE CLARK Admission Status: Elective Accout number: [id number] Admission Date: 10-09-2018 : 1940 Admission Diagnosis: Attending: JOSE GUADALUPE HANSEN Current LOS: 2 Anticipated DC Date: Planned Disposition: Home Primary Insurance: [facility] [employer]UT[employer] Discharge Planning Comments: CM met with patient at bedside. Patient states he lives at home with is spouse (Haleigh). He plans on returning to their home upon discharge. He states he feels safe at his home. He states he will have family drive him home upon discharge. He denies any discharge needs at this time. CM will continue to follow and assist as needed with discharge planning / needs. Cane Weigher: Yola Sandy DCPIA - Discharge Planning Initial Assessment Updated by [email or web address]: Yola Sandy on 10/11/18 5:24 pm * Is the patient Alert and Oriented? Yes * How many steps to enter\exit or inside your home? Ramp * PCP BALWINDER * Pharmacy [facility] * Preadmission Environment Home with Family * ADLs Independent * Other Equipment access to wheelchair, walker, and 02 if needed * List name and contact numbers for known caregivers / representatives who currently or will assist patient after discharge: Haleigh Clark - - [phone] * Verbal permission to speak to the caregivers and representatives has been obtained from the patient. Yes * Community resources currently utilized None * Additional services required to return to the preadmission environment? No * Can the patient safely return to the preadmission environment? Yes * Has this patient been hospitalized within the prior 30 days at any hospital? No Last DP export: 10/11/18 4:24 p Patient Name: TOMMIE CLARK Page [id number] at 1733 All edits/amendments must be made on the electronic document DICTATION DATE: 10/11/181732 SCIENTIFIC PUBLICATIONS EDITOR: DANYEL 10/11/181732 RPT#: [id number] DC DATE: STATUS: ADM IN [facility] [address] [place] [address] END OF REPORT
--- NOTE | 2018-10-11 20:14 | NUR ---
HS MEDS GIVEN WITHOUT DIFFICULTY. PARTIAL BATH GIVEN. COMPLETE LINENS CHANGED. SAFETY MEASURES IN PLACE. CBIR
--- NOTE | 2018-10-11 21:58 | NUR ---
PT LAYING IN BED ASLEEP SHOWING NO SS OF DISTRESS.
--- NOTE | 2018-10-11 23:39 | NUR ---
REASSESSMENT COMPLETE. NO CHANGES NOTED TO PT CONDITION. ASLEEP ON SIDE SHOWING NO SS OF DISTRESS. SAFETY MEASURES IN PLACE. CBIR.
[2018-10-12] VITALS (92 sets, daily range): BP systolic 49–144; BP diastolic 36–117
--- NOTE | 2018-10-12 01:54 | NUR ---
SLEEPING SHOWING NO SS OF DISTRESS. NO CHANGES NOTED IN HRR. REMAINS HYPOTENSIVE. DENIES ANY PAIN. NO CONCERNS VOICED. SAFETY MEASURES IN PLACE. CBIR.
[2018-10-12 05:01] LABS: BASOPHILS 0.3 % (0-2); EOSINOPHILS 3.5 % (0-7); HEMATOCRIT 30.9 % (42.0-54.0); HEMOGLOBIN 10.6 g/dL (13.5-17.5); IMMATURE GRANULOCYTES 1.4 % (0-5); LYMPHOCYTES 12.2 % (15-50); MCH 31.7 pg (26.0-34.0); MCHC 34.3 g/dL (31.0-37.0); MCV 92.5 fL (80.0-100.0); MEAN PLATELET VOLUME 11.1 fL (7.4-10.4); MONOCYTES 5.6 % (2-11); PLATELET COUNT 261 10x3/uL (130-400); RBC 3.34 10x6/uL (4.20-6.10); RDW 14.6 % (11.5-14.5); WBC 7.2 10x3/uL (4.8-10.8)
[2018-10-12 05:30] LABS: ALBUMIN 2.4 g/dL (3.4-5.0); ANION GAP 15.2 mmol/L (8-16); BILIRUBIN - TOTAL 0.72 mg/dL (0.2-1.3); CALCIUM 8.4 mg/dL (8.5-10.1); CARBON DIOXIDE 22.7 mmol/L (21.0-32.0); CREATININE - SERUM 1.4 mg/dL (0.6-1.3); POTASSIUM - SERUM 3.9 mmol/L (3.5-5.1); PROTEIN - SERUM 6.4 g/dL (6.4-8.2)
--- NOTE | 2018-10-12 06:32 | NUR ---
RESTING IN BED. STATES "I FEEL SO MUCH BETTER THIS MORNING". VS UNCHANGED. SAFETY MEASURES IN PLACE. CBIR. WILL REPORT TO ONCOMING SHIFT USING SBAR.
--- NOTE | 2018-10-12 15:39 | NUR ---
0830-DR ORTIZ AT [facility] AND STATUS REPORT GIVEN 1200-SITTING UP AT SIDE OF BED AND TOLERATING WELL 1330-ASSISTED TO [facility] COMMODE
--- NOTE | 2018-10-12 15:51 | NUR ---
REPORT RECEIVED. TAKING OVER CARE AT THIS TIME. VSS WILL CONTINUE TO MONITOR DENIES NEEDS
--- NOTE | 2018-10-12 19:04 | NUR ---
BEDSIDE SHIFT REPORT GIVEN BY DEPARTING RN. PT LAYING IN BED C/O OF NOT FEELING GIOOD. A FIB WITH HYPOTENSION. RICCO FA PIV INFUSING MD ORDERED MEDS. AAOX4. PERRLA. DENIES ANY NEEDS AT THIS TIME. ASSESSMENT COMPLETE. SEE FLOWSHEET FOR FULL DETAILS. SAFETY MEASURES IN PLACE. CBIR.
--- NOTE | 2018-10-12 20:05 | NUR ---
HS MEDS GIVEN. PRN PAIN MED GIVEN FOR BACK PAIN. SEE MAR FOR DETAILS. SWALLOWED ALL PO MEDS WITHOUT DIFFICULTY.
--- NOTE | 2018-10-12 21:44 | NUR ---
FAMILY CALLED FOR UPDATE. PT CONSENT GIVEN. UPDATE GIVEN. ALL QUESTIONS ANSWERED.
--- NOTE | 2018-10-12 21:59 | NUR ---
RESTING IN BED WATCHING TV. NO CHANGES IN PT CONDITION.
--- NOTE | 2018-10-12 23:04 | NUR ---
REASSESSMENT COMPLETE. NO CHANGES IN PT CONDITION. ASLEEP SHOWING NO SS OF DISTRESS. SAFETY MEASURES IN PLACE. CBIR.
[2018-10-13] VITALS (59 sets, daily range): BP systolic 57–136; BP diastolic 37–93
--- NOTE | 2018-10-13 01:10 | NUR ---
LAYING IN BED ASLEEP. NO CHANGES NOTED. REPOSITIONS SELF.
--- NOTE | 2018-10-13 03:10 | NUR ---
REASSESSMENT COMPLETE. NO CHANGES IN HR AND BP. REPOSITIONS SELF. VOIDS IN URINAL WITH EASE. SAFETY MEASURES IN PLACE. CBIR.
[2018-10-13 04:52] LABS: BASOPHILS 0.2 % (0-2); HEMATOCRIT 29.9 % (42.0-54.0); HEMOGLOBIN 10.1 g/dL (13.5-17.5); IMMATURE GRANULOCYTES 1.2 % (0-5); LYMPHOCYTES 12.5 % (15-50); MCH 31.5 pg (26.0-34.0); MCHC 33.8 g/dL (31.0-37.0); MCV 93.1 fL (80.0-100.0); MEAN PLATELET VOLUME 10.8 fL (7.4-10.4); MONOCYTES 5.8 % (2-11); NEUTROPHILS 76.3 % (40-80); PLATELET COUNT 261 10x3/uL (130-400); RBC 3.21 10x6/uL (4.20-6.10); RDW 14.8 % (11.5-14.5)
[2018-10-13 05:28] LABS: ALBUMIN 2.3 g/dL (3.4-5.0); ANION GAP 12.2 mmol/L (8-16); BILIRUBIN - TOTAL 0.61 mg/dL (0.2-1.3); CARBON DIOXIDE 23.6 mmol/L (21.0-32.0); CREATININE - SERUM 1.3 mg/dL (0.6-1.3); POTASSIUM - SERUM 3.8 mmol/L (3.5-5.1); PROTEIN - SERUM 6.3 g/dL (6.4-8.2)
--- NOTE | 2018-10-13 07:00 | NUR ---
ASSESSMENT PER FLOWSHEET. VOICES NO CO AT TIME.
--- NOTE | 2018-10-13 09:36 | NUR ---
Nutrition follow-up: Diet: Low sodium PO intake ~25% of meals Labs reviewed Wt: 176# Weaning Levophed RDN following.
[2018-10-14] VITALS (71 sets, daily range): BP systolic 77–142; BP diastolic 50–90
--- NOTE | 2018-10-14 00:20 | NUR ---
GOLYTELY IS FINISHED AND PATIENT IS NPO. PATIENT HAS HAD 2 BM LIQUID DARK BLOODY STOOLS. PT CLEANED AND LINEN CHANGE COMPLETE. CALL LIGHT WITHIN REACH, BED IN LOW POSITION.
[2018-10-14 04:47] LABS: BASOPHILS 0.2 % (0-2); EOSINOPHILS 3.4 % (0-7); HEMATOCRIT 28.9 % (42.0-54.0); HEMOGLOBIN 9.8 g/dL (13.5-17.5); IMMATURE GRANULOCYTES 0.9 % (0-5); LYMPHOCYTES 11.5 % (15-50); MCH 31.7 pg (26.0-34.0); MCHC 33.9 g/dL (31.0-37.0); MCV 93.5 fL (80.0-100.0); MEAN PLATELET VOLUME 10.3 fL (7.4-10.4); MONOCYTES 4.5 % (2-11); NEUTROPHILS 79.5 % (40-80); PLATELET COUNT 263 10x3/uL (130-400); RBC 3.09 10x6/uL (4.20-6.10); RDW 15.1 % (11.5-14.5); WBC 5.6 10x3/uL (4.8-10.8)
[2018-10-14 05:05] LABS: ALBUMIN 2.3 g/dL (3.4-5.0); ANION GAP 14.8 mmol/L (8-16); BILIRUBIN - TOTAL 0.57 mg/dL (0.2-1.3); CALCIUM 8.1 mg/dL (8.5-10.1); CARBON DIOXIDE 20.9 mmol/L (21.0-32.0); CREATININE - SERUM 1.3 mg/dL (0.6-1.3); POTASSIUM - SERUM 3.7 mmol/L (3.5-5.1); PROTEIN - SERUM 6.2 g/dL (6.4-8.2)
--- NOTE | 2018-10-14 07:00 | NUR ---
SHIFT ASSESSMENT COMPLETED, PT CARE ASSUMED, MONITORS ON AND WORKING, VITALS STABLE, AFIB, PT AWAKE AND ALERT, CALL LIGHT WITHIN REACH, WILL CONTINUE TO OBSERVE.
--- NOTE | 2018-10-14 09:00 | NUR ---
PT SITTING UP ON SIDE OF BED EATING BREAKFAST, PT AWAKE AND ALERT, NO SIGNS/SYMPTOMS OF PAIN OR DISCOMFORT NOTED AT THIS TIME, LEVO ON 2MCG, WILL WEAN TOLERATED.
--- NOTE | 2018-10-14 11:00 | NUR ---
CONTINUING TO SLOWLY WEAN LEVO DOWN. FAMILY AT BEDSIDE, UPDATE PROVIDED. PT AWAKE AND ALERT, SEE FLOW SHEET FOR FURTHER DETIALS. WILL CONTINUE TO OBSERVE.
--- NOTE | 2018-10-14 13:00 | NUR ---
MONITORS ON AND WORKING, VITALS STABLE, FAMILY AT BEDSIDE, PT AWAKE AND ALERT, REMAINS IN CONTROLLED AFIB, TOLERATING WEANING OFF LEVO. CALL LIGHT WITHIN REACH, WILL CONTINUE TO OBSERVE.
--- NOTE | 2018-10-14 15:00 | NUR ---
NO CHANGES, MONITORS ON AND WORKING, VITALS STABLE, SEE FLOW SHEET FOR FURTHER DETAILS. WILL CONTINUE TO OBSERVE.
--- NOTE | 2018-10-14 17:00 | NUR ---
PT SITTING UP ON SIDE OF BED EATING DINNER, NO SIGNS/SYMPTOMS OF PAIN OR DISCOMFORT NOTED. CALL LIGHT MARGARITA LONGORIA, WILL CONTINUE TO OBSERVE.
--- NOTE | 2018-10-14 19:00 | NUR ---
REPORT RECEIVED AND ASSESSMENT COMPLETED. SEE FLOWSHEET FOR FULL DETAILS
--- NOTE | 2018-10-14 21:00 | NUR ---
2100 MED GIVEN NO OTHER CHANGES AT THIS TIME
--- NOTE | 2018-10-14 23:00 | NUR ---
REASSESSMENT COMPLETED. SEE FLOWSHEET
[2018-10-15] VITALS (13 sets, daily range): BP systolic 96–141; BP diastolic 7–91
[2018-10-15 06:48] LABS: BASOPHILS 0.2 % (0-2); EOSINOPHILS 3.6 % (0-7); HEMATOCRIT 28.9 % (42.0-54.0); HEMOGLOBIN 9.9 g/dL (13.5-17.5); IMMATURE GRANULOCYTES 0.6 % (0-5); LYMPHOCYTES 13.3 % (15-50); MCH 31.7 pg (26.0-34.0); MCHC 34.3 g/dL (31.0-37.0); MCV 92.6 fL (80.0-100.0); MEAN PLATELET VOLUME 9.7 fL (7.4-10.4); MONOCYTES 5.6 % (2-11); NEUTROPHILS 76.7 % (40-80); PLATELET COUNT 250 10x3/uL (130-400); RBC 3.12 10x6/uL (4.20-6.10); RDW 15.4 % (11.5-14.5)
--- NOTE | 2018-10-15 07:00 | NUR ---
PT RESTING IN BED WITH CALL VALE IN REACH AWAKE ALERT AND ORIENTED. VSS. IN CONTROLLED A-FIB. WILL CONTINUE TO MONITOR
[2018-10-15 07:08] LABS: ALBUMIN 2.2 g/dL (3.4-5.0); ANION GAP 15.1 mmol/L (8-16); BILIRUBIN - TOTAL 0.58 mg/dL (0.2-1.3); CARBON DIOXIDE 19.6 mmol/L (21.0-32.0); CREATININE - SERUM 1.2 mg/dL (0.6-1.3); POTASSIUM - SERUM 3.7 mmol/L (3.5-5.1)
--- NOTE | 2018-10-15 09:00 | NUR ---
PT ATE 100% BREAKFAST. VSS. NO COMPLAINTS
--- NOTE | 2018-10-15 10:14 | NUR ---
Nutrition Follow Up: Cardiac diet Pt ate 100% of breakfast Reviewed labs Weight 168lb Pt reports poor appetite. Pt reports sometimes he is able to eat and sometimes he is not able to eat much. Offered Ensure and pt denied. Encouraged protein. Pt does not have teeth but reports no problems chewing the food Pt has no nutrition related questions at this time. Pt reports he wants to go home. RD following
--- NOTE | 2018-10-15 11:00 | NUR ---
PT RESTING IN BED NO COMPLAINTS. AWAKE ALERT AND ORIENTED. CALL VLAE IN REACH. WILL CONTINUE TO MONITOR
--- NOTE | 2018-10-15 13:00 | NUR ---
PT ATE MOST OF LUNCH. VSS
--- NOTE | 2018-10-15 14:38 | NUR ---
CALLED REPORT TO MED 2 NURSE.
--- NOTE | 2018-10-15 15:01 | NUR ---
TRANSFERRED TO 2126 VIA WHEEL CHAIR
--- NOTE | 2018-10-15 15:02 | NUR ---
RECEIVED PT FROM ICU. PT IS AAO AND UP WITH ASSIST. RR EVEN AND UNLABORED ON RA. NS INFUSING VIA R.HAND PIV. NO S/S OF DISTRESS NOTED. PT DENIES ANY NEEDS AT THIS TIME. WILL CTM.
--- NOTE | 2018-10-15 16:22 | NUR ---
TELEMETRY PLACED ON PT. 94 CONTROL A-FIB. PT ASSISTED TO AND FROM BATHROOM. RR EVEN AND UNLABORED ON RA. PT DENIES ANY NEEDS. NO S/S OF DISTRESS NOTED. WILL CTM.
[2018-10-16] VITALS (7 sets, daily range): BP systolic 85–140; BP diastolic 60–80
--- NOTE | 2018-10-16 02:30 | NUR ---
RECIEVED RESTING IN BED WITH BLANKET OVER HIS HEAD. EASILY AROUSES WITH VERBAL STIMULI. ORIENTED X4. UP AD HAN TO B/R. TELEMETRY IN PLACE. IV TO RIGHT HAND AND RIGHT AC SL.. DENIES ANY NEEDS.
--- NOTE | 2018-10-16 07:15 | NUR ---
REPORT RECIEVED AND MORNING ROUNDING COMPLETE. PT SITTING UP IN BED. PT STATES NO NEEDS AT THIS TIME. PT STATES HE BELIEVES HE IS GOING HOME TODAY. BED IN LOWEST POSITION. CALL LIGHT WITHIN REACH.
--- NOTE | 2018-10-16 10:46 | NUR ---
I have reviewed this patient and I concur with the Shift Assessment completed by the Licensed Practical Nurse today this shift.
--- NOTE | 2018-10-16 10:53 | NUR ---
ORTHOSTATICS LAYIN/80 P 72 SITTIN/62 P 82 STANDIN/66 P 83 PT DOES NOT COMPLAIN OF ANY LIGHT HEADED OR DIZZINESS WHEN STANDING OR WALKING. PT LOOKS STEADY ON HIS FEET WHILE AMBULATING.
--- NOTE | 2018-10-16 19:22 | NUR ---
RECIEVED UP IN BED WITH EYES OPEN AND TV ON. ALERT AND ORIENTED X4. UP AD HAN TO B/R. IV TO RIGHT HAND AND LEFT FA SL.. TELEMETRY IN PLACE. DENIES ANY NEEDS.
[2018-10-17 04:00] VITALS: BP 104/68
--- NOTE | 2018-10-17 07:37 | NUR ---
REPORT RECIEVED AND MORNING ROUNDING COMPLETE. PT LAYING IN BED AWAKE AND HOPING TO GO HOME TODAY. PT HAS NO COMPLAINTS OR NEEDS AT THIS TIME. CALL LIGHT WITHIN AND BED IN LOWEST POSITION.
[2018-10-17 08:34] VITALS: BP 109/72
--- NOTE | 2018-10-17 09:39 | NUR ---
I have reviewed this patient and I concur with the Shift Assessment completed by the Licensed Practical Nurse today this shift.
[2018-10-17] MEDS ORDERED: MIDODRINE HCL5 MG PO (10:40)
[2018-10-17] MEDS ORDERED: LANOXIN125 MCG PO (10:44)
--- NOTE | 2018-10-17 11:26 | NUR ---
PT DISCHARGED. REMOVED PT'S PIV FROM RIGHT HAND AND LEFT FOREARM, NO BLEEDING NOTED. REVIEWED DISCHARGE INSTRUCTIONS WITH PT AND PT'S FAMILY. PT AND FAMILY STATED THEY UNDERSTOOD INSTRUCTION AND SIGNED DISCHARGE PAPERWORK. PAINTER TOOK PT DOWNSTAIRS TO MEET FAMILY AT FRONT DOOR. NO OTHER NEEDS AT THIS TIME.
--- NOTE | 2018-10-18 09:32 | MORECARE ---
CASE MANAGEMENT DISCHARGE SUMMARY PATIENT: TOMMIE CLARK UNIT: [id number] ADM DATE: 10/09/18 AGE: 78 : 41 SEX: M ROOM/BED: D.6569 AUTHOR: ROSEANNA GLASS PHYSICIAN: REFERRING PHYSICIAN: JOSE GUADALUPE HANSEN MD DATE OF SERVICE: 10/18/18 Discharge Plan Patient Name: TOMMIE CLARK Facility: [facility]:[place] : 1940 Planned Disposition: Home Anticipated Discharge Date: 10/17/18 Discharge Date: 10/17/2018 Expected LOS: 8 Initial Reviewer: [email or web address] Initial Review Date: 10/11/2018 Generated: 10/18/18 10:31 am DCP- Discharge Planning Updated by [email or web address]: Yola Sandy on 10/11/18 4:[address] Patient Name: TOMMIE CLARK Admission Status: Elective Accout number: [id number] Admission Date: 10-09-2018 : 1940 Admission Diagnosis: Attending: JOSE GUADALUPE HANSEN Current LOS: 2 Anticipated DC Date: Planned Disposition: Home Primary Insurance: [facility] MEDICARE SOLUTIONS Discharge Planning Comments: CM met with patient at bedside. Patient states he lives at home with is spouse (Haleigh). He plans on returning to their home upon discharge. He states he feels safe at his home. He states he will have family drive him home upon discharge. He denies any discharge needs at this time. CM will continue to follow and assist as needed with discharge planning / needs. Limited Radiology Technician: Yola Sandy DCPIA - Discharge Planning Initial Assessment Updated by [email or web address]: Yola Sandy on 10/11/18 5:24 pm * Is the patient Alert and Oriented? Yes * How many steps to enter\exit or inside your home? Ramp * PCP BALWINDER * [facility] * Preadmission Environment Home with Family * ADLs Independent * Other Equipment access to wheelchair, walker, and 02 if needed * List name and contact numbers for known caregivers / representatives who currently or will assist patient after discharge: Haleigh Clark - - [phone] * Verbal permission to speak to the caregivers and representatives has been obtained from the patient. Yes * Community resources currently utilized None * Additional services required to return to the preadmission environment? No * Can the patient safely return to the preadmission environment? Yes * Has this patient been hospitalized within the prior 30 days at any hospital? No Last DP export: 10/11/18 4:33 p Patient Name: TOMMIE CLARK Page [id number] at 0932 All edits/amendments must be made on the electronic document DICTATION DATE: 10/18/18930 MANAGER CAREER: DANYEL 10/18/18930 RPT#: [id number] DC DATE:10/17/18 STATUS: DIS IN [facility] [address] [place] [address] END OF REPORT
== END 2018-10-17 11:30 | disposition home or self-care (01) | DRG 314 ==
LOC: D.ICU 12:59 → D.M2 10-15 14:47
PROVIDERS: Internal Medicine Nephrology; ADMIT Emergency Medicine; ATTEND Emergency Medicine
DX: I42.9 Cardiomyopathy, unspecified (principal); R57.0 Cardiogenic shock; I13.0 Hypertensive heart and chronic kidney disease with heart failure and stage 1 through stage 4 chronic kidney disease, or unspecified chronic kidney disease; I50.22 Chronic systolic (congestive) heart failure; N17.9 Acute kidney failure, unspecified; E87.1 Hypo-osmolality and hyponatremia; N39.0 Urinary tract infection, site not specified; I25.10 Atherosclerotic heart disease of native coronary artery without angina pectoris; I48.91 Unspecified atrial fibrillation; I95.9 Hypotension, unspecified; N18.3 Chronic kidney disease, stage 3 (moderate); E11.22 Type 2 diabetes mellitus with diabetic chronic kidney disease; E83.42 Hypomagnesemia

== ENCOUNTER 2019-11-07 01:05 | Inpatient (IN) | payer MEDICARE, MEDICAID ==
[~2019-11-07] VITALS: Ht 180.3 cm; Wt 84.5 kg
[~2019-11-07 01:05] MED LIST changes: +LANOXIN125 MCG PO; +MIDODRINE HCL5 MG PO
[2019-11-07] MEDS ORDERED: ELIQUIS5 MG PO (01:22)
--- NOTE | 2019-11-07 02:34 | NUR ---
PT ARRIVED TO ROOM. AMBULATORY, GAIT SLOW AND STEADY. DENIES CHEST PAIN/DISCOMFORT. RR EVEN AND UNLABORED ON 2L NC. NO S/SX OF DISTRESS OBSERVED. PT NPO UNTIL CARDIAC CONSULT. EDUCATED USE OF CALL LIGHT FOR ASSISTANCE. WILL MONITOR.
[2019-11-07 03:16] VITALS: BP 102/65; BMI 27.2
[2019-11-07 04:00] VITALS: BP 102/65
--- NOTE | 2019-11-07 07:15 | NUR ---
RECEIVED PT IN BED AAOX4 RESP UNLABORED SKIN W/D COLOR WNL DENIES ANY PAIN OR NEEDS AT THIS TIME
[2019-11-07 08:00] VITALS: BP 101/72
[2019-11-07 12:08] LABS: HEMATOCRIT 42.1 % (42.0-54.0); MCH 32.4 pg (26.0-34.0); MCHC 33.3 g/dL (31.0-37.0); MCV 97.5 fL (80.0-100.0); PLATELET COUNT 189 10x3/uL (130-400); RBC 4.32 10x6/uL (4.20-6.10); RDW 13.1 % (11.5-14.5); WBC 7.4 10x3/uL (4.8-10.8)
[2019-11-07 12:21] VITALS: Ht 180.3 cm; Wt 84.5 kg
[2019-11-07 12:25] LABS: LYMPHOCYTES 25 % (15-50); MONOCYTES 6 % (2-11); NEUTROPHILS 69 % (40-80); PLATELET ESTIMATE NORMAL
[2019-11-07 12:32] LABS: % SATURATION 44 % (15-55); IRON 98 ug/dl (35-150); TOTAL IRON BIND CAPACITY 221 ug/dl (260-445); UNSAT IRON BIND CAPACITY 123 ug/dl (150-375)
[2019-11-07 13:00] LABS: ALBUMIN 3.5 g/dL (3.4-5.0); ANION GAP 10.3 mmol/L (8-16); BILIRUBIN - TOTAL 1.02 mg/dL (0.2-1.3); CALCIUM 8.2 mg/dL (8.5-10.1); CARBON DIOXIDE 26.8 mmol/L (21.0-32.0); CREATININE - SERUM 1.7 mg/dL (0.6-1.3); POTASSIUM - SERUM 4.1 mmol/L (3.5-5.1); PROTEIN - SERUM 7.9 g/dL (6.4-8.2)
[2019-11-07 13:55] LABS: GLUCOSE 250 mg/dL (NEGATIVE); NITRITE NEGATIVE (NEGATIVE)
[2019-11-07 13:56] LABS: BILIRUBIN NEGATIVE (NEGATIVE); KETONE NEGATIVE (NEGATIVE); UROBILINOGEN NORMAL (NORMAL)
[2019-11-07 14:03] VITALS: BP 109/67
[2019-11-07 18:27] VITALS: BP 111/64
--- NOTE | 2019-11-07 19:22 | NUR ---
RECEIVED BEDSIDE REPORT. PATIENT IS ALERT AND ORIENTED, RESTING COMFORTABLY IN BED. RESPIRATIONS ARE EVEN AND UNLABORED. NO S/S OF DISTRESS. NO C/O PAIN. DENIES NEEDS AT THIS TIME. CALL LIGHT WITHIN REACH. WILL CPOC.
[2019-11-07 22:09] VITALS: BP 127/79
[2019-11-08 00:54] VITALS: BP 122/80
[2019-11-08 05:05] VITALS: BP 107/74
[2019-11-08 06:09] LABS: BASOPHILS 0.2 % (0-2); EOSINOPHILS 1.8 % (0-7); HEMATOCRIT 41.1 % (42.0-54.0); HEMOGLOBIN 13.6 g/dL (13.5-17.5); IMMATURE GRANULOCYTES 0.2 % (0-5); LYMPHOCYTES 26.6 % (15-50); MCH 32.2 pg (26.0-34.0); MCHC 33.1 g/dL (31.0-37.0); MCV 97.4 fL (80.0-100.0); MEAN PLATELET VOLUME 10.6 fL (7.4-10.4); MONOCYTES 6.5 % (2-11); NEUTROPHILS 64.7 % (40-80); PLATELET COUNT 179 10x3/uL (130-400); RBC 4.22 10x6/uL (4.20-6.10); RDW 13.3 % (11.5-14.5); WBC 6.3 10x3/uL (4.8-10.8)
[2019-11-08 06:47] LABS: APTT 29.4 SECONDS (22.8-39.4); INR 1.19 (0.85-1.17); PROTIME 15.1 SECONDS (11.6-15.0)
[2019-11-08 07:13] LABS: ALBUMIN 3.4 g/dL (3.4-5.0); ALKALINE PHOSPHATASE 80 U/L (30-120); ALT (SGPT) 25 U/L (10-68); BILIRUBIN - TOTAL 0.85 mg/dL (0.2-1.3); CALCIUM 8.4 mg/dL (8.5-10.1); CARBON DIOXIDE 25.1 mmol/L (21.0-32.0); CHLORIDE - SERUM 101 mmol/L (98-107); CREATININE - SERUM 1.6 mg/dL (0.6-1.3); LIPASE 69 U/L (73-393); POTASSIUM - SERUM 4.1 mmol/L (3.5-5.1); PRO BNP 419 pg/mL (0-450); PROTEIN - SERUM 7.7 g/dL (6.4-8.2); SODIUM 134 mmol/L (136-145); THYROID STIMULATING HORMONE 3.15 uIU/mL (0.36-3.74); UREA NITROGEN 21 mg/dL (7-18); eGFR NON AFRICAN AMERICAN 45 mL/min (90-120)
[2019-11-08 07:18] LABS: CALC OSMOLALITY 273 mosm/kg (275-300); GLUCOSE 160 mg/dL (74-106); TROPONIN-I < 0.017 ng/mL (0.000-0.060)
[2019-11-08] MEDS ORDERED: PROTONIX40 MG PO (08:34)
[2019-11-08 09:31] VITALS: BP 112/83
--- NOTE | 2019-11-08 09:42 | NUR ---
02 SAT 93% RA WHILE AMBULATING.
--- NOTE | 2019-11-08 11:27 | MORECARE ---
CASE MANAGEMENT DISCHARGE SUMMARY PATIENT: TOMMIE EVANS UNIT: [id number] ADM DATE: 11/07/19 AGE: 79 : 41 SEX: M ROOM/BED: D.2114 AUTHOR: ROSEANNA GLASS PHYSICIAN: REFERRING PHYSICIAN: JAXON ORTIZ MD DATE OF SERVICE: 11/08/19 Discharge Plan Patient Name: TOMMIE EVANS [facility] [facility] 1940 Planned Disposition: Home Anticipated Discharge Date: 11/08/19 Discharge Date: Expected LOS: 1 Initial Reviewer: [email or web address] Initial Review Date: 11/08/2019 Generated: 11/08/19 12:26 pm Patient Name: TOMMIE EVANS Page [id number] at 1127 All edits/amendments must be made on the electronic document DICTATION DATE: 11/08/19 1126 COLLECTION SYSTEMS MODELER: DANYEL 11/08/19 1126 RPT#: [id number] DC DATE: STATUS: ADM IN [facility] [address] [place] [address] END OF REPORT
--- NOTE | 2019-11-08 11:35 | MORECARE ---
CASE MANAGEMENT DISCHARGE SUMMARY PATIENT: TOMMIE EVANS UNIT: [id number] ADM DATE: 11/07/19 AGE: 79 : 41 SEX: M ROOM/BED: D.7034 AUTHOR: MARIA LUISADOC PHYSICIAN: REFERRING PHYSICIAN: JAXON ORTIZ MD DATE OF SERVICE: 11/08/19 Discharge Plan Patient Name: TOMMIE EVANS Facility: [facility]:[place] : 1940 Planned Disposition: Home Anticipated Discharge Date: 11/08/19 Discharge Date: Expected LOS: 1 Initial Reviewer: [email or web address] Initial Review Date: 11/08/2019 Generated: 11/08/19 12:35 pm Comments DCP- Discharge Planning Updated by [email or web address]: Yessenia Tran on 11/08/19 10:[address] Patient Name: TOMMIE EVANS Admission Status: ER Accout number: [id number] Admission Date: 11-07-2019 : 1940 Admission Diagnosis: Attending: JAXON ORTIZ Current LOS: 1 Anticipated DC Date: 11-08-2019 Planned Disposition: Home Primary Insurance: [facility] MEDICARE SOLUTIONS Discharge Planning Comments: CM met with patient to complete initial dc planning assessment. CM educated patient on the CM role and verbal consent given by patient to complete assessment. Patient lives at home with his spouse. At discharge patient plans to return and feels this is a safe discharge. CM discussed availability of home health, rehab services, and medical equipment. Patient denied known discharge needs at this time. CM will continue to follow and will assist as needed with dc plans/needs. Mental Health Social Worker: Yessenia Tran DCPIA - Discharge Planning Initial Assessment Updated by [email or web address]: Yessenia Tran on 11/08/19 11:28 am * Is the patient Alert and Oriented? Yes * How many steps to enter\exit or inside your home? Ramp/0 * Pharmacy [facility] in [facility] * Preadmission Environment Home with Family * ADLs Independent * Equipment Walker Wheelchair * Other Equipment States he has access to wheelchair, walker and oxygen that was his 's, but he nor his need them. * List name and contact numbers for known caregivers / representatives who currently or will assist patient after discharge: Haleigh - spouse - [phone] * Verbal permission to speak to the caregivers and representatives has been obtained from the patient. Yes * Community resources currently utilized None * Additional services required to return to the preadmission environment? No * Can the patient safely return to the preadmission environment? Yes * Has this patient been hospitalized within the prior 30 days at any hospital? Yes Last DP export: 11/08/19 10:27 a Patient Name: TOMMIE EVANS Page 22674 at 1135 All edits/amendments must be made on the electronic document DICTATION DATE: 11/08/19 1135 WIRE SPLICER: DANYEL 11/08/19 1135 RPT#: [id number] DC DATE: STATUS: ADM IN [facility] [address] [place] [address] END OF REPORT
--- NOTE | 2019-11-08 12:01 | NUR ---
IV AND TELEMETRY DCD. DC PLANS GIVEN. UNDERSTANDING VOICED. ESCORTED TO CAR BY W/C.
--- NOTE | 2019-11-08 13:09 | EC ---
PATIENT:TOMMIE EVANS DATE OF SERVICE: 11/07/19 SEX: M MEDICAL RECORD: [id number] DATE OF : [birth year] LOCATION:D.M2 D.211 AGE OF PATIENT: 79 ADMISSION DATE: 11/07/19 REFERRING PHYSICIAN: INTERPRETING PHYSICIAN: KALIA BOWER MD ECHOCARDIOGRAM REPORT ECHO CHARGES 5 ECHO LIMITED Date: 11/07/19 CLINICAL DIAGNOSIS: CARDIOMYOPATHY ECHOCARDIOGRAPHIC MEASUREMENTS (adult normal given) AC root (d.<3.7cm) 0 cm LV Septum d (<1.2 cm> 0 cm Valve Excursion 0 cm LV Septum (systole) 0 cm Left Atria (s.<4.0cm> 0 cm LVPW d(<1.2cm) 0 cm RV (d.<2.3cm) 0 cm LVPW (sytole) 0 cm LV diastole(<5.6CM) 0 cm MV E-F(>70mm/sec) 0 cm LV systole 0 cm LVOT Diameter 0 cm MV exc.(>10mm) 0 cm Est.ejection fraction (50-75%) 0 % DOPPLER: LVIT 0 cm/sec A 0 cm/sec E 0 cm/sec LA 0 cm/sec RVSP 0 mmHg LVOT 0 cm/sec AOP1/2T 0 m/s Asc. Ao 0 cm/sec RVOT 0 cm/sec RA 0 cm/sec PA 0 cm/sec AV Gradient Peak 0 mmHg AV Mean 0 mmHg AV Area 0 cm MV Gradient Peak 0 mmHg MV Mean 0 mmHg MV Area 0 cm COMMENTS: LIMITED STUDY (2-D ONLY) COMPLETE ECHO DONE ON 10/11/19 Icing Mixer: 1 LIBERTY GIPSONOE Continuous Mining Machine Coal Miner: 3 Dr. Perera TAPE# PACS Pericardial Effusion N DATE OF SERVICE: This is a limited study includes 2D only. Grossly, LVH appears present. LV internal dimension appear dilated. 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 Aortic valve is tricuspid with good valve excursion. Left atrium appears dilated. Mitral valve does not show any calcification with good valve excursion. Right-sided chambers appear grossly normal. Tricuspid valve shows good valve excursion. ECHOCARDIOGRAM REPORT [id number] TOMMIE EVANS TRANSINT:[id number] Voice Confirmation ID: [id number] DOCUMENT ID: [id number] KALIA BOWER MD at 1309 CC: [id number] DICTATION DATE: 11/07/19 1244 WAREHOUSE ASSEMBLY WORKER: 11/07/19 1407 DIS IN 11/08/19 [address] [place] [address]
--- NOTE | 2019-11-09 18:32 | MORECARE ---
CASE MANAGEMENT DISCHARGE SUMMARY PATIENT: TOMMIE EVANS UNIT: [id number] ADM DATE: 11/07/19 AGE: 79 : 41 SEX: M ROOM/BED: D.7034 AUTHOR: MARIA LUISA,DOC PHYSICIAN: REFERRING PHYSICIAN: JAXON ORTIZ MD DATE OF SERVICE: 11/09/19 Discharge Plan Patient Name: TOMMIE EVANS Facility: [facility]:[place] : 1940 Planned Disposition: Home Anticipated Discharge Date: 11/08/19 Discharge Date: 11/08/2019 Expected LOS: 1 Initial Reviewer: [email or web address] Initial Review Date: 11/08/2019 Generated: 11/09/19 7:32 pm DCP- Discharge Planning Updated by [email or web address]: Yessenia Tran on 11/08/19 10:[address] Patient Name: TOMMIE EVANS Admission Status: ER Accout number: [id number] Admission Date: 11-07-2019 : 1940 Admission Diagnosis: Attending: JAXON ORTIZ Current LOS: 1 Anticipated DC Date: 11-08-2019 Planned Disposition: Home Primary Insurance: [facility] MEDICARE SOLUTIONS Discharge Planning Comments: CM met with patient to complete initial dc planning assessment. CM educated patient on the CM role and verbal consent given by patient to complete assessment. Patient lives at home with his spouse. At discharge patient plans to return and feels this is a safe discharge. CM discussed availability of home health, rehab services, and medical equipment. Patient denied known discharge needs at this time. CM will continue to follow and will assist as needed with dc plans/needs. Production Associate: Yessenia Tran DCPIA - Discharge Planning Initial Assessment Updated by [email or web address]: Yessenia Tran on 11/08/19 11:28 am * Is the patient Alert and Oriented? Yes * How many steps to enter\exit or inside your home? Ramp/0 * Pharmacy [facility] in [facility] * Preadmission Environment Home with Family * ADLs Independent * Equipment Walker Wheelchair * Other Equipment States he has access to wheelchair, walker and oxygen that was his 's, but he nor his need them. * List name and contact numbers for known caregivers / representatives who currently or will assist patient after discharge: Haleigh Patel [facility] - [phone] * Verbal permission to speak to the caregivers and representatives has been obtained from the patient. Yes * Community resources currently utilized None * Additional services required to return to the preadmission environment? No * Can the patient safely return to the preadmission environment? Yes * Has this patient been hospitalized within the prior 30 days at any hospital? Yes Last DP export: 11/08/19 10:35 a Patient Name: TOMMIE EVANS Page [phone] at 1832 All edits/amendments must be made on the electronic document DICTATION DATE: 11/09/191831 TITLE MANAGER: DANYEL 11/09/191831 RPT#: [id number] DC DATE:11/08/19 STATUS: DIS IN [facility] [address] [place] [address] END OF REPORT
== END 2019-11-08 12:01 | disposition home or self-care (01) | DRG 308 ==
LOC: D.ER 01:05 → D.M2 01:22
PROVIDERS: Family Medicine; ADMIT Internal Medicine Nephrology; ATTEND Internal Medicine Nephrology
DX: I48.20 Chronic atrial fibrillation, unspecified (principal); I50.43 Acute on chronic combined systolic (congestive) and diastolic (congestive) heart failure; I13.0 Hypertensive heart and chronic kidney disease with heart failure and stage 1 through stage 4 chronic kidney disease, or unspecified chronic kidney disease; N18.9 Chronic kidney disease, unspecified; I25.10 Atherosclerotic heart disease of native coronary artery without angina pectoris; I25.5 Ischemic cardiomyopathy; E53.8 Deficiency of other specified B group vitamins; K80.20 Calculus of gallbladder without cholecystitis without obstruction